=== PATIENT | female | born 1985 | race Caucasian/White ===

== ENCOUNTER → 2020-07-09 11:58 | Outpatient (BNVA) | payer OTHER, SELFPAY | PROVIDERS: PCP Internal Medicine; Visit Provider Advanced Practice Midwife ==

== ENCOUNTER 2020-07-24 08:49 | Outpatient (REF) | payer OTHER, SELFPAY ==
[2020-07-25 09:29] LABS: CT PCR NOT DETECTED (Not Detect.); NG PCR NOT DETECTED (Not Detect.)
== END 2020-07-24 08:50 | disposition home or self-care (01) ==
LOC: HO.LAB 08:49
PROVIDERS: PCP Internal Medicine; Visit Provider Advanced Practice Midwife
DX: Z01.419 Encounter for gynecological examination (general) (routine) without abnormal findings (principal); Z11.3 Encounter for screening for infections with a predominantly sexual mode of transmission; Z20.2 Contact with and (suspected) exposure to infections with a predominantly sexual mode of transmission
CPT/HCPCS: 87491; 87591

== ENCOUNTER → 2020-08-19 08:10 | Outpatient (BNVA) | payer OTHER, SELFPAY | PROVIDERS: PCP Internal Medicine; Visit Provider Advanced Practice Midwife ==

== ENCOUNTER 2020-11-15 07:20 | Outpatient (REF) | payer OTHER, SELFPAY ==
[2020-11-15 07:55] LABS: MANUAL DIFF FLAG NO
[2020-11-15 08:01] LABS: Basophils Absolute Auto 0.1 X10*3/uL (0.0-0.2); Basophils Percent Auto 1.1 % (0-2); Eosinophils Absolute Auto 0.2 X10*3/uL (0.0-0.4); Eosinophils Percent Auto 2.4 % (0-4); Hematocrit 38.3 % (37-47); Hemoglobin 12.9 g/dl (12.0-16.0); Imm Gran Abs Auto 0.01 X10*3/uL (0.00-0.03); Imm Gran Pct Auto 0.2 % (0.0-0.4); Lymphocytes Absolute Auto 1.8 X10*3/uL (1.2-4.9); Lymphocytes Percent Auto 27.8 % (20-40); Mean Corpuscular HGB Conc 33.7 g/dl (31.0-35.0); Mean Corpuscular Hemoglobin 28.4 pg (27.0-33.0); Mean Corpuscular Volume 84.2 fL (80-98); Monocytes Absolute Auto 0.4 X10*3/uL (0.1-1.2); Monocytes Percent Auto 5.4 % (2-11); Neutrophils Absolute Auto 4.2 X10*3/uL (2.0-8.3); Neutrophils Percent Auto 63.1 % (45-73); Platelet Count 244 X10*3/uL (160-400); Red Blood Count 4.55 X10*6/uL (4.20-5.50); Red Cell Distribution Width 12.4 % (11.0-16.0); White Blood Count 6.6 X10*3/uL (4.8-10.8)
[2020-11-15 08:16] LABS: Alanine Aminotransferase 11 U/L (0-31); Anion Gap 12 (12-20); Aspartate Amino Transferase 17 U/L (5-31); Blood Urea Nitrogen 11 mg/dL (9-16); Calcium 9.3 mg/dL (8.4-10.2); Carbon Dioxide 22 mmol/L (22-29); Chloride 109 mmol/L (96-108); Cholesterol 171 mg/dL; Estimated Glomerular Filt Rate > 60; Glucose Fasting 101 mg/dL (60-99); HDL Cholesterol 52 mg/dL; LDL Cholesterol Calculated 101 mg/dl; Potassium 4.2 mmol/L (3.3-5.1); Sodium 139 mmol/L (135-145); Triglycerides 93 mg/dL
[2020-11-15 08:39] LABS: TSH reflex Free T4 1.83 uIU/mL (0.32-4.0)
== END 2020-11-15 07:21 | disposition home or self-care (01) ==
LOC: HO.LAB 07:20
PROVIDERS: PCP Internal Medicine; Visit Provider Internal Medicine
DX: Z00.00 Encounter for general adult medical examination without abnormal findings (principal); J30.89 Other allergic rhinitis; R53.83 Other fatigue; I10 Essential (primary) hypertension; Z91.018 Allergy to other foods
CPT/HCPCS: 36415; 80048; 80061; 82306; 84443; 84450; 84460; 85025

== ENCOUNTER 2021-07-27 09:06 | Outpatient (REF) | payer OTHER, SELFPAY ==
[2021-07-28 06:40] LABS: CT PCR NOT DETECTED (Not Detect.); NG PCR NOT DETECTED (Not Detect.)
== END 2021-07-27 09:07 | disposition home or self-care (01) ==
LOC: HO.LAB 09:06
PROVIDERS: PCP Internal Medicine; Visit Provider Advanced Practice Midwife
DX: Z01.419 Encounter for gynecological examination (general) (routine) without abnormal findings (principal); Z20.2 Contact with and (suspected) exposure to infections with a predominantly sexual mode of transmission
CPT/HCPCS: 87491; 87591

== ENCOUNTER 2021-07-30 13:55 | Outpatient (REF) | payer OTHER, SELFPAY ==
[2021-07-30 16:22] LABS: Basophils Absolute Auto 0.1 X10*3/uL (0.0-0.2); Basophils Percent Auto 0.7 % (0-2); Red Cell Distribution Width 12.9 % (11.0-16.0); SCAN SMEAR FLAG 1
[2021-07-30 16:24] LABS: PLT CLUMP 1
[2021-07-30 16:28] LABS: Imm Gran Abs Auto 0.02 X10*3/uL (0.00-0.03); Imm Gran Pct Auto 0.2 % (0.0-0.4); MANUAL DIFF FLAG SCAN; Mean Corpuscular Volume 85.5 fL (80.0-98.0)
[2021-07-30 16:29] LABS: Eosinophils Absolute Auto 0.2 X10*3/uL (0.0-0.4); Eosinophils Percent Auto 2.3 % (0-4); Hematocrit 38.4 % (37.0-47.0); Hemoglobin 12.6 g/dl (12.0-16.0); Lymphocytes Absolute Auto 2.3 X10*3/uL (1.2-4.9); Lymphocytes Percent Auto 23.2 % (20-40); Mean Corpuscular HGB Conc 32.8 g/dl (31.0-35.0); Mean Corpuscular Hemoglobin 28.1 pg (27.0-33.0); Mean Platelet Volume 13.3 fL (9.4-12.3); Monocytes Absolute Auto 0.7 X10*3/uL (0.1-1.2); Monocytes Percent Auto 7.1 % (2-11); Neutrophils Absolute Auto 6.6 x10*3/uL (2.0-8.3); Neutrophils Percent Auto 66.5 % (45-73); Red Blood Count 4.49 X10*6/uL (4.20-5.50)
[2021-07-30 16:30] LABS: PLT ABN DIST 1
[2021-07-30 16:33] LABS: White Blood Count 9.9 X10*3/uL (4.8-10.8)
[2021-07-30 16:51] LABS: TSH reflex Free T4 2.01 uIU/mL (0.32-4.0); Vitamin D 25-OH Total 21.1 ng/mL (>30)
[2021-07-30 16:54] LABS: Platelet Count 240 X10*3/uL (160-400); SLIDE REVIEW VERIFIED
== END 2021-07-30 13:56 | disposition home or self-care (01) ==
LOC: HO.HMGCLDS 13:55
PROVIDERS: PCP Internal Medicine; Visit Provider Internal Medicine
DX: R00.2 Palpitations (principal)
CPT/HCPCS: 36415; 82306; 84443; 85025

== ENCOUNTER → 2021-09-10 14:27 | Outpatient (BNVA) | payer OTHER, SELFPAY | PROVIDERS: PCP Internal Medicine; Visit Provider Advanced Practice Midwife | DX: Z32.01 Encounter for pregnancy test, result positive (principal); Z63.6 Dependent relative needing care at home | CPT/HCPCS: 81025 ==

== ENCOUNTER → 2021-09-29 13:50 | Outpatient (BNVA) | payer OTHER, SELFPAY | PROVIDERS: PCP Internal Medicine; Visit Provider Advanced Practice Midwife | DX: O09.521 Supervision of elderly multigravida, first trimester (principal); Z3A.10 10 weeks gestation of pregnancy | CPT/HCPCS: 99212 ==

== ENCOUNTER 2021-10-02 13:18 | Outpatient (REF) | payer OTHER, SELFPAY ==
--- NOTE | ~2021-10-02 | US_ITS ---
EXAMINATION: OBSTETRICAL ULTRASOUND, FIRST TRIMESTER HISTORY: 35-year-old at 11.1 weeks of gestation NT screening COMPARISON: None TECHNIQUE: Real time transabdominal imaging with color and M-mode Doppler. FINDINGS: A single, live IUP CRL of 41.9 mm c/w 11.1wks is noted. Heart Rate: 160 beats per minute. Normal yolk sac seen. NT was 1.1.mm. NB Present The embryo appears sonographically wnl for this GA. Both maternal ovaries are seen and appear normal. GESTATIONAL AGE: 1. Established GA: 11.1 wks 2. GA from AUA: 11.1 wks ESTIMATED DATE OF DELIVERY: 1. Established GRACE: 04/22/2022 2. GRACE from AUA: 04/22/2022 US/US OB 1T nuc measure IMPRESSION: 1. A single live IUP 2. Size equals dates 3. NT of 1.1 mm MFM Consultation: I reviewed the ultrasound findings along with significance of NT measurement. The NT of less than 3mm is generally reassuring. However, the sensitivity for T21 detection is only 60%. I reviewed the availability of serum aneuploidy screening which includes cell-free DNA and placental protein based tests. I discussed the sensitivity, false-positive rate, and other limitations associated with each test. I also reviewed the availability of invasive diagnostic tests that are associated small but definite risk of miscarriage. We also reviewed the differences between screening tests and diagnostic tests. After our discussion, she opted for the First trimester screening that is based on cell-free DNA or non-invasive testing (NIPT). The result will be faxed to your office in approximately 7 days. A follow up at 18 weeks for survey has been scheduled. Thank you very much for this referral. Total time 20 minutes. The time spent was devoted to counseling the patient about the disease and diagnosis, coordinating care including reviewing her records, pertinent lab data and studies, as well as discussing diagnostic evaluation and workup, plan therapeutic interventions and future disposition of care. This includes any additional research needed to obtain further information in formulating the plan of care of this patient. This note was generated with a voice recognition program. Please excuse any errors which may have been overlooked during my review of this note. Sometimes these errors may affect the content or meaning of a given sentence.
== END 2021-10-02 13:19 | disposition home or self-care (01) ==
LOC: HO.US 13:18
PROVIDERS: Visit Provider Advanced Practice Midwife
DX: Z34.91 Encounter for supervision of normal pregnancy, unspecified, first trimester (principal); Z36.3 Encounter for antenatal screening for malformations; Z3A.11 11 weeks gestation of pregnancy
CPT/HCPCS: 76813

== ENCOUNTER 2021-10-03 07:09 | Outpatient (REF) | payer OTHER, MEDICAID, SELFPAY ==
[2021-10-03 09:35] LABS: Hematocrit 35.6 % (37.0-47.0); Mean Corpuscular HGB Conc 33.7 g/dl (31.0-35.0); Mean Corpuscular Hemoglobin 28.7 pg (27.0-33.0); Mean Corpuscular Volume 85.2 fL (80.0-98.0); Mean Platelet Volume 12.4 fL (9.4-12.3); Platelet Count 244 X10*3/uL (160-400); Red Blood Count 4.18 X10*6/uL (4.20-5.50); Red Cell Distribution Width 13.2 % (11.0-16.0); White Blood Count 7.9 X10*3/uL (4.8-10.8)
[2021-10-03 10:02] LABS: Glucose 1 Hour PP 50gm Dose 130 mg/dL (60-140)
[2021-10-03 10:20] LABS: Amphetamine Screen Urine Not Detected (Not Detect); Barbiturates, Urine Not Detected (Not Detect); Benzodiazepines Screen Urine Not Detected (Not Detect); Cannabinoid Screen Urine Not Detected (Not Detect); Cocaine Screen Urine Not Detected (Not Detect); Fentanyl, urine Not Detected (Not Detect); Opiate Screen Urine Not Detected (Not Detect); Phencyclidine Screen Urine Not Detected (Not Detect)
[2021-10-05 07:59] LABS: Syphilis Screen Nonreactive (Nonreactive)
[2021-10-05 10:03] LABS: HIV AB/AG Nonreactive (Nonreactive); HIV Num 1 0.04 S/CO (0.00-0.99); Hepatitis B Surface Antigen Negative (Negative); ~HepC Num1 0.08 S/CO (0.00-0.79); ~Hepatitis C Antibody Nonreactive (Nonreactive)
[2021-10-05 17:12] LABS: Rubella IgG Antibody 5.62 Index
== END 2021-10-03 07:10 | disposition home or self-care (01) ==
LOC: HO.LAB 07:09
PROVIDERS: PCP Internal Medicine; Visit Provider Advanced Practice Midwife
DX: Z32.01 Encounter for pregnancy test, result positive (principal)
CPT/HCPCS: 80307; 85027; 86762; 86780; 86787; 86803; 87086; 87340; 87389

== ENCOUNTER 2021-10-15 09:28 | Outpatient (REF) | payer OTHER, MEDICAID, SELFPAY ==
[2021-10-15 14:33] LABS: CT PCR NOT DETECTED (Not Detect.); NG PCR NOT DETECTED (Not Detect.)
[2021-10-16 09:20] LABS: BV Int Neg Control Negative (Negative); BV Int Pos Control Positive (Positive)
== END 2021-10-15 09:29 | disposition home or self-care (01) ==
LOC: HO.LAB 09:28
PROVIDERS: PCP Internal Medicine; Visit Provider Advanced Practice Midwife
DX: O09.521 Supervision of elderly multigravida, first trimester (principal); Z3A.13 13 weeks gestation of pregnancy
CPT/HCPCS: 81003; 87480; 87491; 87510; 87591; 87660; 99212

== ENCOUNTER → 2021-10-29 08:21 | Outpatient (BNVA) | payer OTHER, MEDICAID, SELFPAY | PROVIDERS: PCP Internal Medicine; Referring Provider Internal Medicine; Visit Provider Internal Medicine Cardiovascular Disease | DX: R00.2 Palpitations (principal) | CPT/HCPCS: 93005 ==

== ENCOUNTER → 2021-10-30 15:02 | Outpatient (REF) | payer OTHER, MEDICAID, SELFPAY ==
--- NOTE | 2021-10-30 15:05 | CA_ITS ---
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 The calculated ejection fraction is 63% by biplane method. - No obvious valvular pathology seen on this study. - The right ventricular systolic pressure is 37 mmHg. Mild pulmonary hypertension is present. - There is a trivial pericardial effusion. Findings Left Ventricle Normal left ventricular cavity size. There is normal left ventricular wall thickness. The left ventricular systolic function is normal. The calculated ejection fraction is 63% by biplane method. There is no evidence of regional wall motion abnormalities. Diastolic function is normal for age. Right Ventricle Normal right ventricular cavity size and systolic function. Atria Both atria are normal in size. Aortic Valve There is a normal trileaflet aortic valve. There is no aortic valve stenosis. There is no aortic valve regurgitation. Mitral Valve The mitral valve appears normal. There is trace mitral valve regurgitation. There is no mitral valve stenosis. Pulmonic Valve The pulmonic valve is likely normal. Tricuspid Valve Normal tricuspid valve structure. There is trace tricuspid valve regurgitation. The right ventricular systolic pressure is 37 mmHg. Mild pulmonary hypertension is present. Great Vessels The asc aorta is normal in size. Venous The inferior vena cava is normal in size and collapses greater than 50% with inspiration. Pericardium/Pleural There is a trivial pericardial effusion. Prior Study Comparison No prior study available for comparison. Recommendations, Care & Conclusions No obvious valvular pathology seen on this study. Measurements 2D Linear Measurements IVSd: 0.87 0.6-0.9/0.6-1.0 cm LVIDd: 4.65 3.9-5.3/4.2-5.9 cm LVIDd Index: 2.61 2.4-3.2/2.2-3.1 cm/m2 LVIDs: 2.83 2.0-3.6 cm LVPWd: 0.84 0.7-1.1 cm LA Diam: 3.70 2.7-3.8/3.0-4.0 cm LAIDs Index: 2.08 1.5-2.3 cm/m2 LV Mass: 162.98 67-162/88-224 g LV Mass Index: 91.56 43-95/49-115 g/m2 LVOT Diam: 1.80 3.0+(-)1.3 cm 2D Systolic Function EF 4C: 62.40 >55% EF 2C: 65.40 >55% EF BiP: 63.40 >55% Mitral Valve MV Pk E: 1.32 MV PK A: 0.94 MV Decel Time: 183.00 E/A: 1.40 E'Lateral: 11.30 E'Medial: 8.27 E/E' Med: 16.00 E/E' Lat: 11.70 PHT: 54.00 MVA PHT: 4.07 Decel Parke: 7.21 Aortic Valve AoV Pk Sean: 1.76 AoV Mn Sean: 1.14 AoV VTI: 0.35 AoV Pk Grad: 12.00 Aov Mn Grad: 6.00 BRYANNA Cont.VTI: 1.81 LVOT LVOT Pk Sean: 1.25 LVOT Mn Sean: 0.84 LVOT VTI: 0.25 LVOT Pk Grad: 6.00 LVOT Mn Grad: 3.00 LVOT Diam: 1.80 LVOT Area: 2.54 Diastolic Function MV Pk E: 1.32 MV Pk A: 0.94 E/A: 1.40 E'Medial: 8.27 E/E' Med: 16.00 E' Laterial: 11.30 E/E' Lat: 11.70 Right Ventricle TAPSE (mm): 25.60 TVS' Sean: 13.30 Tricuspid Valve TR Pk Sean: 2.93 TR Pk Grad: 34.00 RA Press: 3.00 RVSP: 37.00 Great Vessels Aorta Sinus of Valsalva: 2.22 2.0-3.[address] Ridge: 1.93 1.7-3.4 cm Ao Asc: 2.60 2.1-3.4 cm Updated in Other Vendor System with Status of Final Poli Vitale MD electronically signed on 11/03/2021 4:17:07 PM with status of Final
== END ==
LOC: HO.CARD 15:02
PROVIDERS: PCP Internal Medicine; Visit Provider Internal Medicine Cardiovascular Disease
DX: R00.2 Palpitations (principal)
CPT/HCPCS: 93306

== ENCOUNTER → 2021-11-10 07:24 | Outpatient (REF) | payer OTHER, MEDICAID, SELFPAY ==
--- NOTE | 2021-11-10 07:28 | HM_ITS ---
* Total monitoring time 2 days and 23 hours. * Underlying rhythm is sinus. Average rate 101/Min. Range 81 to 153/Min. * About 55% the time, rate greater than 100/Min-sinus tachycardia. * No atrial fibrillation or flutter or AV blocks or pauses. * Very rare supraventricular ectopy with minimal burden. * Rare ventricular ectopy with minimal burden. * No patient events. MTDD
== END ==
LOC: HO.CARD 07:24
PROVIDERS: PCP Internal Medicine; Visit Provider Internal Medicine Cardiovascular Disease
DX: R00.2 Palpitations (principal)
CPT/HCPCS: 93242

== ENCOUNTER → 2021-11-12 14:31 | Outpatient (BNVA) | payer OTHER, MEDICAID, SELFPAY | PROVIDERS: PCP Internal Medicine; Visit Provider Advanced Practice Midwife | DX: Z34.92 Encounter for supervision of normal pregnancy, unspecified, second trimester (principal); Z3A.17 17 weeks gestation of pregnancy | CPT/HCPCS: 81003; 99212 ==

== ENCOUNTER → 2021-12-10 14:48 | Outpatient (BNVA) | payer OTHER, MEDICAID, SELFPAY | PROVIDERS: PCP Internal Medicine; Visit Provider Advanced Practice Midwife | DX: Z34.82 Encounter for supervision of other normal pregnancy, second trimester (principal); Z3A.21 21 weeks gestation of pregnancy | CPT/HCPCS: 99212 ==

== ENCOUNTER → 2021-12-22 14:51 | Outpatient (REF) | payer OTHER, MEDICAID, SELFPAY ==
--- NOTE | 2021-12-22 14:53 | CA_ITS ---
Transthoracic Echocardiogram Patient (Last, First, Middle): Yamini Martins, Gender: Female Date of : 1985 Age: 35 Procedure Date: 12/22/2021 Procedure Type: Transthoracic Echocardiogram Location: OP Height: 157.48 cm Weight: 79.38 kg BSA: 1.81 m2 Heart Rate: bpm BP: 118 / 72 mmHg Checkerer Hand: PORTIA Referring MD: Nikhil Robles MD Symptoms: I27.20 - Pulmonary hypertension, unspecified Study Quality: Adequate ECG Rhythm: Sinus Conclusions: - Mild pulmonary hypertension is present. Findings Right Ventricle Normal right ventricular cavity size and systolic function. Tricuspid Valve Normal tricuspid valve structure. There is trace tricuspid valve regurgitation. The right ventricular systolic pressure is 37 mmHg. Mild pulmonary hypertension is present. Venous The inferior vena cava is normal in size and collapses greater than 50% with inspiration. Prior Study Comparison No significant change compared to prior study dated: 10/30/2021. Measurements Tricuspid Valve TR Pk Sean: 2.93 TR Pk Grad: 34.00 RA Press: 3.00 RVSP: 37.00 Updated in Other Vendor System with Status of Final Poli Vitale MD electronically signed on 12/23/2021 10:45:10 AM with status of Final
== END ==
LOC: HO.CARD 14:51
PROVIDERS: PCP Internal Medicine; Visit Provider Internal Medicine Cardiovascular Disease
DX: I27.20 Pulmonary hypertension, unspecified (principal)
CPT/HCPCS: 93308

== ENCOUNTER → 2022-01-05 15:38 | Outpatient (BNVA) | payer OTHER, MEDICAID, SELFPAY | PROVIDERS: PCP Internal Medicine; Visit Provider Advanced Practice Midwife | DX: O09.522 Supervision of elderly multigravida, second trimester (principal); Z3A.24 24 weeks gestation of pregnancy | CPT/HCPCS: 81003; 99212 ==

== ENCOUNTER → 2022-02-03 13:46 | Outpatient (BNVA) | payer OTHER, MEDICAID, SELFPAY | PROVIDERS: PCP Internal Medicine; Visit Provider Advanced Practice Midwife | DX: O16.3 Unspecified maternal hypertension, third trimester (principal); O26.893 Other specified pregnancy related conditions, third trimester; R00.2 Palpitations; Z3A.28 28 weeks gestation of pregnancy | CPT/HCPCS: 99212 ==

== ENCOUNTER 2022-11-10 08:43 | Outpatient (AMB) | payer OTHER, MEDICAID, SELFPAY ==
[2022-11-10 08:46] VITALS: BP 126/76; PULSE 96; BMI 31.4
--- NOTE | 2022-11-10 08:46 | MHC.OFFVIS ---
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 She had her child 7 months ago. She had some issues with blood pressure after delivery. Otherwise she has been doing well. Blood pressures been well optimized. She has no cardiac symptoms. Still has occasional palpitations. However does not notice her heart racing. No lightheadedness, syncope. No orthopnea, PND. PFSH Medical History Environmental and seasonal allergies Food allergy Intermittent palpitations Migraine Mild intermittent asthma Seasonal allergies Vitamin D deficiency Family History Mother Heart murmur Father Hx of diabetes mellitus Maternal Grandmother Hx of diabetes mellitus Social History Housing: House Alcohol intake: never Patient Tobacco Use Status: Never used Tobacco e-Cigarette/Vaping Use: Never Used Second Hand Smoke Exposure: No service: No Current occupational status: employed Gender identity: Female Cognitive needs: No Hearing needs: No Vision needs: Yes Female Reproductive History Menstrual Age of Menarche: 11 Review of Systems Const Denies chills, Denies fatigue, Denies fever(s), Denies frequent falls, Denies weakness, Denies weight gain and Denies weight loss ENT Denies dizziness Card Denies chest pain, Denies leg edema, Denies lightheadedness, Denies palpitations, Denies dyspnea, Denies dyspnea on exertion, Denies orthopnea and Denies other (loss of consciousness) Resp Denies cough, Denies dyspnea and Denies dyspnea on exertion GI Denies hematochezia and Denies change in stool character Musc Denies abnormal gait, Denies muscle weakness, Denies numbness, Denies radiating pain into limb and Denies tingling Neuro Denies Abnormal speech present, Denies abnormal gait, Denies dizziness, Denies frequent falls, Denies numbness, Denies tingling and Denies weakness Endo Denies fatigue and Denies palpitations Physical Exam Vital Signs: Last Vital Signs Pulse 96 11/10/22 08:46 BP 126/76 11/10/22 08:46 BMI result Body Mass Index 31.4 Const General: cooperative, comfortable, no acute distress, well developed, alert, awake, Physically active and well groomed Nutritional Appearance: average body habitus Orientation/consciousness: patient oriented x3 Limitations: no limitations Neck Neck: Yes trachea midline, Yes supple and Yes no JVD Chest Chest palpation & inspection: normal inspection of the chest Resp Effort & Inspection: normal respiratory effort Auscultation: clear to auscultation bilaterally Cardio Jugular venous distension: no JVD Palpation: normal PMI Rate: regular rate Rhythm: regular rhythm Heart sounds: S1 normal heart sound present, S2 normal heart sound present, no click, no gallops, no murmurs and no rubs GI Inspection: Yes other (Gravid) Auscultation: normal bowel sounds Skin General skin exam: no rashes or lesions noted Neuro General: patient oriented x3 and no focal motor deficits Speech: No Abnormal speech present Extrem General: Yes no clubbing, cyanosis or edema Assessment & Plan Assessment & Plan (1) Mild pulmonary arterial systolic hypertension: Code(s): I27.21 - Secondary pulmonary arterial hypertension Plan: Patient noted to have upper limits of normal RV systolic pressure. Does not qualify for diagnosis of pulmonary hypertension. Could be related to and increased volume. Will repeat limited echocardiogram near future. If RV systolic pressures are within normal limits no further workup is indicated or follow-up is indicated. Advised to participate in stress mitigation strategies and avoid stimulants. Advised to have adequate hydration. Advised to maintain activity level and regularly exercise. Will follow up in the clinic if need be. Thank you for allowing me to partake in her care Orders: Orders CA echo limited Today I27.21 - Secondary pulmonary arterial hypertension Coding Level of Care Code Est Pt Level 3 (50331) Diagnoses Mild pulmonary arterial systolic hypertension I27.21
== END 2022-11-10 09:05 | disposition home or self-care (01) ==
PROVIDERS: PCP Internal Medicine; Referring Provider Internal Medicine; Visit Provider Internal Medicine Cardiovascular Disease
DX: I27.21 Secondary pulmonary arterial hypertension (principal)
CPT/HCPCS: 93010; 99213

== ENCOUNTER → 2022-11-10 08:43 | Outpatient (BNVA) | payer OTHER, MEDICAID, SELFPAY | PROVIDERS: PCP Internal Medicine; Referring Provider Internal Medicine; Visit Provider Internal Medicine Cardiovascular Disease | DX: I27.21 Secondary pulmonary arterial hypertension (principal) | CPT/HCPCS: 93005 ==

== ENCOUNTER 2022-11-10 13:26 | Outpatient (AMB) | payer OTHER, MEDICAID, SELFPAY ==
--- NOTE | 2022-11-10 13:46 | A.OFFPC_ITS ---
Vital Signs 11/10/22 13:52 Height 5 ft 2 in Weight 173 lb BMI 31.6 BP 120/82 Blood Pressure Location Lt brachial Position Sitting Pulse 89 Pulse Source Pulse Oximeter Pulse Oximetry (%) 100 Oxygen Delivery Method Room Air Intake Visit Reasons: PE Intake Note: Pt is here today for her PE Is last menstrual period known: Yes Last menstrual period: 11/08/22 Allergies advil Allergy (Unknown, Uncoded 11/10/22 14:09) swelling Strawberries, Apples Allergy (Unknown, Uncoded 11/10/22 14:09) itching Medication List - Last Reconciled 11/10/22 by Joanna Montoya MD albuterol sulfate 90 mcg/actuation 2 puffs inhalation Q6H PRN multivitamin 1 tab PO DAILY norgestimate-ethinyl estradiol 0.18/0.215/0.25 mg-35 mcg (28) (Tri-Sprintec (28)) 1 tab PO DAILY ubrogepant (Ubrelvy) 0 mg PO Tobacco use date assessed: 11/10/22 Dental Screening Dental Screen Date: 11/10/22 Did you have a dental visit in the last 12 months?: Yes Did you have a dental problem in the last 6 months where you did not have access to dental care?: No Was dental information given to patient?: Patient has dentist HPI PE HPI Details 36-year-old lady here today for physical exam. She has migraine headaches , currently followed at [facility] neurology , controlled on Ubrelvy. She goes to [facility] OBG[facility], up-to-date with her cervical cancer screening . She has mild intermittent asthma and season allergies currently stable controlled on present treatment, rarely needing to use her inhalers. She has had COVID vaccinations the past but does not want to get a booster, reminded to get her flu shot, which she gets at work and is up-to-date with her Tdap and Pneumovax 23. [facility] Medical History (Updated 11/10/22 @ 16:14 by Joanna Montoya MD) Environmental and seasonal allergies Food allergy Intermittent palpitations Migraine Mild intermittent asthma Seasonal allergies Vitamin D deficiency Family History Mother Heart murmur Father Hx of diabetes mellitus Maternal Grandmother Hx of diabetes mellitus Social History Housing: House Alcohol intake: never Patient Tobacco Use Status: Never used Tobacco e-Cigarette/Vaping Use: Never Used Second Hand Smoke Exposure: No service: No Current occupational status: employed Gender identity: Female Cognitive needs: No Hearing needs: No Vision needs: Yes Female Reproductive History Menstrual Age of Menarche: 11 Date of last menstrual period: 11/08/22 Total pregnancies: 3 Full term: 3 Questionnaire PHQ-9 Over the last 2 weeks, how often have you been bothered by any of the following problems? 1. Little interest or pleasure in doing things: not at all 2. Feeling down, depressed, or hopeless: not at all 3. Trouble falling or staying asleep, or sleeping too much: not at all 4. Feeling tired or having little energy: not at all 5. Poor appetite or overeating: not at all 6. Feeling bad about yourself - or that you are a failure or have let yourself or your family down: not at all 7. Trouble concentrating on things, such as reading the newspaper or watching television: not at all 8. Moving or speaking so slowly that other people could have noticed. Or the opposite - being so fidgety or restless that you have been moving around a lot more than usual: not at all 9. Thoughts that you would be better off or of hurting yourself in some way: not at all Total score: 0 Depression Screening Interpretation: Negative 43082 - PHQ-9 Billing: Yes Source: Developed by Drs. Rodrigo Quijano, Re Goff, Michael Malone and colleagues, with an educational yanique from [employer]. Thrive Questionnaire Date Thrive assessed: 11/10/22 I am a: Patient What is your living situation today?: I have a steady place to live Within the past 12 months, did the food you bought not last and you didn't have the money to get more?: Never true Within the past 12 months, did you worry whether your food would run out before you got money to buy more?: Never true Do you have trouble paying for medicines?: No Do you have trouble getting transportation to medical appointments?: No Do you have trouble paying your heating and electricity bill?: No Do you have trouble taking care of your child, family member or friend?: No Do you have trouble with day-to-day activities such as bathing, preparing meals, shopping, managing finances, etc.?: No Are you currently unemployed and looking for a job?: No Are you interested in more education?: No AUDIT C Alcohol Use Questionnaire (AUDIT-C) 1. How often do you have a drink containing alcohol?: Never Total Score: 0 SERGIO-7 AMB Questionnaire SERGIO-7 Date SERGIO - 7 assessed: 11/10/22 Feeling nervous, anxious, or on edge: 0 = Not at all Not being able to stop or control worryin = Not at all Worrying too much about different things: 0 = Not at all Trouble relaxin = Not at all Being so restless that it is hard to sit still: 0 = Not at all Becoming easily annoyed or irritable: 0 = Not at all Feeling afraid as if something awful might happen: 0 = Not at all Total SERGIO-7 score (0-4 normal; 5-9 mild; 10-14 moderate; 15-21 severe): 0 Source: Developed by Drs. Rodrigo Quijano, Re Goff, Michael Malone and colleagues, with an educational yanique from [employer]. SERGIO-7 Assessment Billing SERGIO-7 Assessment Tool: SERGIO-7 Assessment 64786 Review of Systems Const Denies chills, Denies fatigue, Denies fever(s), Denies frequent falls and Denies weakness Eyes Reports no additional complaints ENT Reports no additional complaints and Denies dizziness Card Denies chest pain, Denies leg edema, Denies lightheadedness, Denies palpitations, Denies dyspnea, Denies dyspnea on exertion and Denies orthopnea Resp Denies cough, Denies dyspnea and Denies dyspnea on exertion GI Denies hematochezia and Denies change in stool character Reports no additional complaints Musc Denies abnormal gait, Denies muscle weakness, Denies numbness, Denies radiating pain into limb and Denies tingling Skin/Breast Denies breast swelling, Denies breast pain, Denies breast mass, Denies lesions and Denies rash Neuro Denies abnormal gait, Denies dizziness, Denies frequent falls, Denies numbness, Denies tingling and Denies weakness Psych Reports no additional complaints Endo Denies fatigue and Denies palpitations Marco A/Lymph Reports no additional complaints Aller/Immun Reports no additional complaints Physical exam (Primary Care) Vital Signs: Last Vital Signs Pulse 89 11/10/22 13:52 BP 120/82 11/10/22 13:52 Pulse Ox 100 11/10/22 13:52 Oxygen Delivery Method Room Air 11/10/22 13:52 BMI result Body Mass Index 31.6 Tobacco/Smoking Status: Tobacco use Status Tobacco use date assessed 11/10/22 11/10/22 13:48 Patient Tobacco Use Status Never used Tobacco 11/10/22 13:48 e-Cigarette/Vaping Use Never Used 11/10/22 13:48 PHQ-9: PHQ-9 Score PHQ-9: Total score 0 11/10/22 13:51 Depression Screening Interpretation: Negative Thrive Assessment: Date of Thrive Assessment Date Thrive assessed 11/10/22 11/10/22 13:57 Const General: cooperative, comfortable and no acute distress Orientation/consciousness: patient oriented x3 Limitations: no limitations HENMT Ears: external ears normal General nose exam: Normal external nose present and No nasal discharge present Face and sinus: Yes sinuses nontender and Yes face symmetric Mouth: Normal oral and palatal mucosa present, oropharynx normal and moist mucous membranes Throat: Yes posterior oropharynx normal Eyes General: appearance normal, both eyes and all related structures Conjunctivae: conjunctivae normal Pupils: Equal, round and reactive pupils present EOM: EOMs intact bilaterally Neck Other: Nonpalpable thyroid Neck: Yes full ROM, Yes no lymphadenopathy and Yes supple Chest Chest palpation & inspection: normal inspection of the chest and normal palpation of entire chest wall Breast/axilla inspection: normal inspection of the breasts Breast/axilla palpation: normal palpation of the breasts Resp Effort & Inspection: normal respiratory effort and able to speak in complete sentences Auscultation: clear to auscultation bilaterally Cardio Rate: regular rate Rhythm: regular rhythm Heart sounds: S1 normal heart sound present and S2 normal heart sound present GI Inspection: Yes normal to inspection Palpation (GI): Soft to palpation, nontender and no masses Auscultation: normal bowel sounds Other: Goes to [facility] OBGYN for her routine Pap and pelvic exam General: Yes no CVA tenderness Back/Spine/Pelvis Back: no CVA tenderness and No back tenderness Skin General skin exam: no rashes or lesions noted Neuro General: patient oriented x3, gait normal, tone normal, moves all extremities, Normal light touch and pain sensation and no focal motor deficits Cranial nerves: Yes Equal, round and reactive pupils present Cognition (Neuro): normal cognition Gait exam (Neuro): Normal gait present Motor exam (neuro): 5/5 motor strength present throughout Extrem Other: No edema cyanosis or clubbing seen, no gross bone deformity or joint swelling Psych Appearance: grossly normal Mental Status: mental status grossly normal Speech and movement: Normal speech and movement present Affect: normal affect Attitude: cooperative Thought process: Normal thought process present Thought content: Normal thought content present Assessment and Plan Assessment & Plan (1) Vitamin D deficiency: Code(s): E55.9 - Vitamin D deficiency, unspecified Plan: Check vitamin-D level, advised to start taking [id number]-dgy-pdbsydg vitamin D3 at 2000 units daily (2) Mild intermittent asthma: Code(s): J45.20 - Mild intermittent asthma, uncomplicated Plan: Stable and controlled present treatment, rarely needing to use her albuterol inhaler (3) Annual visit for general adult medical examination with abnormal findings: Code(s): Z00.01 - Encounter for general adult medical examination with abnormal findings Plan: Will check appropriate labs. Continue with regular dental visit every 6 months and regular eye exams, at least every 2 years. Take adequate calcium in diet and vitamin-D 3 at 2000 IU per cap once a day, in addition to weight-bearing exercises to help maintain good muscle tone and weight control. Instructed to do self-breast exam, and recommended to get yearly mammogram, starting at age 40. Declines getting the COVID booster, up-to-date with her flu shot, and Tdap as well as Pneumovax 23 vaccine. Goes to [facility] OBG[facility] for her routine Pap and pelvic exam and for monitoring or contraceptive use (4) Migraine: Comment: without aura Code(s): G43.909 - Migraine, unspecified, not intractable, without status migrainosus Plan: Followed at [facility] neurology, migraine headaches currently controlled on Ubrelvy (5) Hyperhidrosis: Code(s): R61 - Generalized hyperhidrosis Orders: Orders Alanine Aminotransferase Today E55.9 - Vitamin D deficiency, unspecified, J30.89 - Other allergic rhinitis, J45.20 - Mild intermittent asthma, uncomplicated, Z00.01 - Encounter for general adult medical examination with abnormal findings Aspartate Amino Transferase Today E55.9 - Vitamin D deficiency, unspecified, J30.89 - Other allergic rhinitis, J45.20 - Mild intermittent asthma, uncomplicated, Z00.01 - Encounter for general adult medical examination with abnormal findings Basic Metabolic Panel Fasting Today E55.9 - Vitamin D deficiency, unspecified, J30.89 - Other allergic rhinitis, J45.20 - Mild intermittent asthma, uncomplicated, Z00.01 - Encounter for general adult medical examination with abnormal findings Lipid Panel Today E55.9 - Vitamin D deficiency, unspecified, J30.89 - Other allergic rhinitis, J45.20 - Mild intermittent asthma, uncomplicated, Z00.01 - Encounter for general adult medical examination with abnormal findings Vitamin D 25-OH Total Today E55.9 - Vitamin D deficiency, unspecified, J30.89 - Other allergic rhinitis, J45.20 - Mild intermittent asthma, uncomplicated, Z00.01 - Encounter for general adult medical examination with abnormal findings Hemoglobin and Hematocrit Today E55.9 - Vitamin D deficiency, unspecified, J30.89 - Other allergic rhinitis, J45.20 - Mild intermittent asthma, uncomplicated, Z00.01 - Encounter for general adult medical examination with abnormal findings Medications: New Drysol Dab-O-Matic 20% (aluminum chloride) 1 appl topical 2XW PRN 35 mL 0RF hyperhidrosis NS Coding Level of Care Code Est Pt Prev Care 18-39y([id number]) Diagnoses Vitamin D deficiency E55.9 Mild intermittent asthma J45.20 Annual visit for general adult medical examination with abnormal findings Z00.01 Migraine G43.909 Hyperhidrosis R61 Additional Codes SERGIO-7 Assessment Billing - SERGIO-7 Assessment Tool: SERGIO-7 Assessment 28801 ([id number])
[2022-11-10 13:52] VITALS: BP 120/82; PULSE 89; O2SAT 100; BMI 31.6
== END 2022-11-10 14:39 | disposition home or self-care (01) ==
PROVIDERS: PCP Internal Medicine; Visit Provider Internal Medicine
DX: E55.9 Vitamin D deficiency, unspecified (principal); J45.20 Mild intermittent asthma, uncomplicated; Z00.01 Encounter for general adult medical examination with abnormal findings; G43.909 Migraine, unspecified, not intractable, without status migrainosus; R61 Generalized hyperhidrosis
CPT/HCPCS: 99395

== ENCOUNTER 2022-11-20 07:43 | Outpatient (REF) | payer OTHER, MEDICAID, SELFPAY ==
[2022-11-20 08:45] LABS: Hemoglobin 13.4 g/dl (12.0-16.0)
[2022-11-20 09:18] LABS: Alanine Aminotransferase 13 U/L (0-31); Anion Gap 13 (12-20); Aspartate Amino Transferase 17 U/L (5-31); Blood Urea Nitrogen 9 mg/dL (9-16); Calcium 9.5 mg/dL (8.4-10.2); Carbon Dioxide 26 mmol/L (22-29); Chloride 104 mmol/L (96-108); Cholesterol 181 mg/dL (<200); Estimated Glomerular Filt Rate > 60; Glucose Fasting 105 mg/dL (60-99); HDL Cholesterol 60 mg/dL (>40); LDL Cholesterol Calculated 93 mg/dL (<100); Potassium 4.2 mmol/L (3.3-5.1); Sodium 139 mmol/L (135-145); Triglycerides 142 mg/dL (<150)
[2022-11-20 09:49] LABS: Vitamin D 25-OH Total 32.1 ng/mL (>30)
== END 2022-11-20 07:44 | disposition home or self-care (01) ==
LOC: HO.LAB 07:43
PROVIDERS: PCP Internal Medicine; Visit Provider Internal Medicine
DX: Z00.01 Encounter for general adult medical examination with abnormal findings (principal); E55.9 Vitamin D deficiency, unspecified; J45.20 Mild intermittent asthma, uncomplicated; J30.89 Other allergic rhinitis
CPT/HCPCS: 36415; 80048; 80061; 82306; 84450; 84460; 85014; 85018

== ENCOUNTER → 2022-12-07 15:49 | Outpatient (REF) | payer OTHER, MEDICAID, SELFPAY ==
--- NOTE | 2022-12-07 15:52 | CA_ITS ---
Transthoracic Echocardiogram Patient (Last, First, Middle): Yamini Martins, Gender: Female Date of : 1985 Age: 36 Procedure Date: 12/07/2022 Procedure Type: Transthoracic Echocardiogram Location: OP Height: 157.48 cm Weight: 76.2 kg BSA: 1.77 m2 Heart Rate: bpm BP: 118 / 82 mmHg Banking Services Clerk: PORTIA Referring MD: Nikhil Robles MD Symptoms: I27.21 - Secondary pulmonary arterial hypertension Study Quality: Adequate Conclusions: - Normal RV systolic pressure Findings Left Ventricle Normal left ventricular size, thickness, and systolic function. The visually estimated ejection fraction is between 60-65%. Spectral Doppler is indicative of a normal filling pattern. Tricuspid Valve The right ventricular systolic pressure is normal. The right ventricular systolic pressure is 28 mmHg. Normal right atrial pressure. There is no evidence of pulmonary hypertension. Prior Study Comparison Changes noted compared to prior study dated: 12/22/2021. RV systolic pressure are within normal limits Measurements Mitral Valve MV Pk E: 1.19 MV PK A: 1.07 MV Decel Time: 257.00 E/A: 1.10 E'Lateral: 10.40 E'Medial: 9.36 E/E' Med: 12.70 E/E' Lat: 11.40 PHT: 75.00 MVA PHT: 2.93 Decel Beauregard: 4.64 Diastolic Function MV Pk E: 1.19 MV Pk A: 1.07 E/A: 1.10 E'Medial: 9.36 E/E' Med: 12.70 E' Laterial: 10.40 E/E' Lat: 11.40 Right Ventricle TAPSE (mm): 26.90 TVS' Sean: 10.40 Tricuspid Valve TR Pk Sean: 2.52 TR Pk Grad: 25.00 RA Press: 3.00 RVSP: 28.00 Updated in Other Vendor System with Status of Final Nikhil Robles MD electronically signed on 12/08/2022 11:00:22 AM with status of Final
== END ==
LOC: HO.CARD 15:49
PROVIDERS: PCP Internal Medicine; Visit Provider Internal Medicine Cardiovascular Disease
DX: I27.21 Secondary pulmonary arterial hypertension (principal)
CPT/HCPCS: 93308

== ENCOUNTER → 2022-12-07 15:52 | Outpatient (BNV) | payer OTHER, MEDICAID, SELFPAY | PROVIDERS: PCP Internal Medicine; Visit Provider Internal Medicine Cardiovascular Disease | DX: I27.21 Secondary pulmonary arterial hypertension (principal) | CPT/HCPCS: 93308 ==

== ENCOUNTER 2023-02-18 10:48 | Outpatient (AMB) | payer OTHER, MEDICAID, SELFPAY ==
--- NOTE | 2023-02-18 11:39 | AM.OFFWIN_ITS ---
Intake Vital Signs 02/18/23 11:49 Height 5 ft 2 in Weight 78.018 kg BMI 31.5 BP 130/80 Blood Pressure Location Rt brachial Position Sitting Pulse 82 Pulse Source Pulse Oximeter Temp 97.7 F Temp Source Temporal Artery Scan Pulse Oximetry (%) 99 Oxygen Delivery Method Room Air Intake Visit Reasons: EST/sore throat and body aches([phone]) Intake Note: pt is here today for sore throat and body aches started last night Patient Tobacco Use Status: Never used Tobacco Allergies advil Allergy (Unknown, Uncoded 11/10/22 14:09) swelling Strawberries, Apples Allergy (Unknown, Uncoded 11/10/22 14:09) itching Do you need a note to return to daycare/school/sports/work: Yes HPI HPI Comments History of Present Illness Details [id number] 37-year-old female presents with fatigue , malaise, myalgias, sore throat all which started yesterday, reports the symptoms came on together at once. Child that was sick with an ear infection. Denies chest pain, shortness of breath, cough, ear pain, headache, vision changes, dizziness, weakness, drooling, changes in voice, difficulty swallowing Physical exam benign Likely viral illness will obtain flu, COVID, RSV. Unlikely epiglottitis, threat to airway, retropharyngeal or peritonsillar abscess. Low suspicion for metabolic derangements. No signs of otitis media, otitis externa mastoiditis. Plan viral testing. Supportive measures. Educated patient on diagnosis and treatment plan, answered all question, patient verbalizes understanding. At this time patient will be discharged home, advised to return with new or worsening symptoms. Educated on worrisome signs and symptoms and when to return. At this time I feel comfortable discharge home. [facility] Medical History Vitamin D deficiency Intermittent palpitations Mild intermittent asthma Food allergy Environmental and seasonal allergies Migraine Seasonal allergies Family History Mother Heart murmur Father Hx of diabetes mellitus Maternal Grandmother Hx of diabetes mellitus Social History Housing: House Alcohol intake: never Patient Tobacco Use Status: Never used Tobacco e-Cigarette/Vaping Use: Never Used Second Hand Smoke Exposure: No service: No Current occupational status: employed Gender identity: Female Cognitive needs: No Hearing needs: No Vision needs: Yes Female Reproductive History Menstrual Age of Menarche: 11 Review of Systems Const Details: Constitutional : No Weight loss, No Fever, No Chills, + Fatigue, + Malaise ENT/Mouth : + sore throat, No Rhinorrhea Eyes: No Eye Pain, No Swelling, No Redness Cardiovascular : No Chest Pain, No SOB, No Dyspnea on Exertion, No Orthopnea, No Edema, No Palpitations Respiratory : No Cough, No Sputum, No Wheezing Gastrointestinal : No Nausea, No Vomiting, No Diarrhea, No Constipation, No abdominal Pain, No Hematochezia, No Melena Genitourinary : No Dysuria, No Urinary Frequency, No Hematuria, Musculoskeletal : No joint pain, + Myalgias, No Joint Swelling Skin : No Skin Lesions, No rash Neuro : No Weakness, No Numbness, No Dizziness, No Headache Psych : No Anxiety/Panic, No Depression All other systems reviewed and are negative All systems reviewed & are unremarkable except as noted in HPI and below Physical Exam Vital Signs: Last Vital Signs Temp 97.7 F 02/18/23 11:49 Pulse 82 02/18/23 11:49 BP 130/80 02/18/23 11:49 Pulse Ox 99 02/18/23 11:49 Oxygen Delivery Method Room Air 02/18/23 11:49 BMI result Body Mass Index 31.5 vss Appearance: Alert.? Oriented X3.? No acute distress.? Head: Normocephalic, atraumatic, no step-offs or deformities Eyes: Pupils equal, round and reactive to light.? Throat: Normal pharynx/oropharynx no edema, erythema. No abscess, exudate. Uvula midline. Speaking in full sentences controlling secretions well. Normal tympanic membranes, ear canals bilaterally no mastoid tenderness Neck: Normal inspection.? Neck supple.? CVS: Normal heart rate and rhythm.? Pulses normal.? Respiratory: No respiratory distress.? Breath sounds normal.? Abdomen: Soft and nontender.? Skin: Skin warm and dry.? Normal skin color.? Normal skin turgor.? Extremities: No lower extremity edema.? No calf ttp. 5/5 strength to bilateral upper and lower extremities Neuro: Oriented X 3.? No motor deficit.? No sensory deficit. CN 2-12 intact Assessment & Plan Assessment & Plan (1) Viral illness: Code(s): B34.9 - Viral infection, unspecified (2) Sore throat: Code(s): J02.9 - Acute pharyngitis, unspecified Plan Take your medications as prescribed. If you were prescribed antibiotics today, it is important that you take your medication to their entirety, do not skip any doses, do not finish them early. Follow-up with your primary care provider this week. Return to the emergency department with new or worsening symptoms. Such as fevers, chills, chest pain, shortness of breath, nausea, vomiting, dizziness, headache, vision changes, lethargy In case of emergency call 911 Orders: Orders SARS-CoV2/FLU/RSV Today B34.9 - Viral infection, unspecified Medications: New Magic Mouthwash Diphen/Lido/Antacid 1:1:1 Lidocaine Viscous 2 % 80mL; diphenhydramine 12.5 mg/5 mL 80mL; aluminum-mag hydrox-simeth [id number]/5mL 80mL Swish and spit do not swallow 5 mL PO TID 240 mL 0RF Coding Level of Care Code Est Pt Level 3 (52138) Diagnoses Viral illness B34.9 Sore throat J02.9
[2023-02-18 11:49] VITALS: BP 130/80; PULSE 82; TEMP 36.5; O2SAT 99; BMI 31.5
== END 2023-02-18 12:57 | disposition home or self-care (01) ==
PROVIDERS: PCP Internal Medicine; Visit Provider Physician Assistant
DX: B34.9 Viral infection, unspecified (principal); J02.9 Acute pharyngitis, unspecified
CPT/HCPCS: 87880; 99213

== ENCOUNTER 2023-02-18 12:02 | Outpatient (REF) | payer OTHER, MEDICAID, SELFPAY ==
[2023-02-18 15:35] LABS: Influenza A PCR NEGATIVE (Negative); Influenza B PCR NEGATIVE (Negative); Resp Syncy Virus RNA Qual PCR NEGATIVE (Negative); SARS COV2 PCR INHOUSE NEGATIVE (Negative)
== END 2023-02-18 12:03 | disposition home or self-care (01) ==
LOC: HO.LAB 12:02
PROVIDERS: Visit Provider Physician Assistant
DX: Z11.52 Encounter for screening for COVID-19 (principal); Z20.822 Contact with and (suspected) exposure to COVID-19; B34.9 Viral infection, unspecified
CPT/HCPCS: 0241U

== ENCOUNTER 2023-11-28 07:53 | Outpatient (AMB) | payer OTHER, MEDICAID, SELFPAY ==
[2023-11-28 08:20] VITALS: BP 132/92; PULSE 89; O2SAT 95; BMI 32.2
--- NOTE | 2023-11-28 08:20 | MHC.PC.OV ---
Vital Signs 11/28/23 08:20 Height 5 ft 2 in Weight 176 lb BMI 32.2 BP 132/92 H Blood Pressure Location Rt brachial Position Sitting Pulse 89 Pulse Source Pulse Oximeter Pulse Oximetry (%) 95 Oxygen Delivery Method Room Air Intake Visit Reasons: PE Intake Note: Pt is here today for her PE: Last papsmear 1.5 yr ago Allergies advil Allergy (Unknown, Uncoded 11/28/23 08:24) swelling Strawberries, Apples Allergy (Unknown, Uncoded 11/28/23 08:24) itching Medication List - Last Reconciled 11/28/23 by Joanna Montoya MD albuterol sulfate 90 mcg/actuation (Ventolin HFA) 2 puffs inhalation Q6H PRN Drysol Dab-O-Matic 20% (aluminum chloride) 1 appl topical 2XW PRN NS norgestimate-ethinyl estradiol 0.18/0.215/0.25 mg-35 mcg (28) (Tri-Sprintec (28)) 1 tab PO DAILY ubrogepant (Ubrelvy) 0 mg PO Tobacco use date assessed: 11/28/23 Dental Screening Dental Screen Date: 11/28/23 Did you have a dental visit in the last 12 months?: Yes Did you have a dental problem in the last 6 months where you did not have access to dental care?: No Was dental information given to patient?: Patient has dentist HPI PE HPI Details 37-year-old lady, here today for a physical exam. Last Pap smear was done in [facility] intranet specialist clinic in 2019 with normal findings, now sees [facility] in [facility], and has an appointment for her pelvic exam and Pap smear already scheduled. She is 19 months with her daughter and is now currently on control prescribed by her OB. Up-to-date with her Tdap given in 2021 and is up-to-date with her pneumonia vaccination and already received her flu shot from work last week. She however does not want to get a COVID booster She has mild intermittent asthma only using albuterol inhaler as a rescue for episodes of bronchospasm and wheezing. Has migraine headache, currently taking Ubrelvy as needed, sees Dr. Angulo at [facility] neurology. Complains of thick discolored friable toenails in both big toes, would like to get this checked and make sure it is not fungal infection. Has tried [id number]-[id number] topical treatment for fungus in the nail which has not afforded any improvement. Complaining of pain in left ear canal, with clear ear discharge on and off for the last several days. Denies any headache, no decreased hearing, now recent sinus infection.. Has seasonal allergies currently not active at this time. [facility] Medical History (Updated 11/28/23 @ 08:58 by Joanna Montoya MD) Acquired deformity of toenail Vitamin D deficiency Intermittent palpitations Mild intermittent asthma Food allergy Environmental and seasonal allergies Migraine Seasonal allergies Family History Mother Heart murmur Father Hx of diabetes mellitus Maternal Grandmother Hx of diabetes mellitus Social History Housing: House Alcohol intake: never Patient Tobacco Use Status: Never used Tobacco e-Cigarette/Vaping Use: Never Used Second Hand Smoke Exposure: No service: No Current occupational status: employed Gender identity: Female Cognitive needs: No Hearing needs: No Vision needs: Yes Female Reproductive History Menstrual Age of Menarche: 11 Other: Sees [facility] for her routine Pap and pelvic exam, prescribed control pills after the of her 3rd daughter Questionnaire PHQ-9 Over the last 2 weeks, how often have you been bothered by any of the following problems? 1. Little interest or pleasure in doing things: not at all 2. Feeling down, depressed, or hopeless: not at all 3. Trouble falling or staying asleep, or sleeping too much: not at all 4. Feeling tired or having little energy: not at all 5. Poor appetite or overeating: not at all 6. Feeling bad about yourself - or that you are a failure or have let yourself or your family down: not at all 7. Trouble concentrating on things, such as reading the newspaper or watching television: not at all 8. Moving or speaking so slowly that other people could have noticed. Or the opposite - being so fidgety or restless that you have been moving around a lot more than usual: not at all 9. Thoughts that you would be better off or of hurting yourself in some way: not at all Total score: 0 Depression Screening Interpretation: Negative Depression Screening Done: Yes 96263 - PHQ-9 Billing: Yes Source: Developed by Drs. Rodrigo Quijano, Michael Hernandez and colleagues, with an educational yanique from [employer]. Thrive Questionnaire Date Thrive assessed: 11/10/22 I am a: Patient What is your living situation today?: I have a steady place to live Within the past 12 months, did the food you bought not last and you didn't have the money to get more?: Never true Within the past 12 months, did you worry whether your food would run out before you got money to buy more?: Never true Do you have trouble paying for medicines?: No Do you have trouble getting transportation to medical appointments?: No Do you have trouble paying your heating and electricity bill?: No Do you have trouble taking care of your child, family member or friend?: No Do you have trouble with day-to-day activities such as bathing, preparing meals, shopping, managing finances, etc.?: No Are you interested in more education?: No Please select the resources that you would like help with: None Currently or been in a relationship where the following occur: No concerns reported THRIVE Score: 0 AUDIT C Alcohol Use Questionnaire (AUDIT-C) 1. How often do you have a drink containing alcohol?: Never Total Score: 0 SERGIO-7 AMB Questionnaire SERGIO-7 Date SERGIO - 7 assessed: 11/10/22 Feeling nervous, anxious, or on edge: 0 = Not at all Not being able to stop or control worryin = Not at all Worrying too much about different things: 0 = Not at all Trouble relaxin = Not at all Being so restless that it is hard to sit still: 0 = Not at all Becoming easily annoyed or irritable: 0 = Not at all Feeling afraid as if something awful might happen: 0 = Not at all Total SERGIO-7 score (0-4 normal; 5-9 mild; 10-14 moderate; 15-21 severe): 0 Source: Developed by Re Garcia Kurt Kroenke and colleagues, with an educational yanique from [employer]. SERGIO-7 Assessment Billing SERGIO-7 Assessment Tool: SERGIO-7 Assessment 47389 Review of Systems Const Denies body aches, Denies fatigue, Denies fever(s), Denies headache(s) (Migraine headaches controlled on Ubrelvy) and Denies weakness Eyes Denies change in vision, Denies eye discharge and Denies itchy eyes ENT Denies dizziness, Denies headache(s) (Migraine headaches controlled on Ubrelvy), Denies nasal congestion, Denies nasal discharge and Denies sore throat Card Denies chest pain, Denies lightheadedness, Denies palpitations and Denies dyspnea Resp Denies chest congestion, Denies cough, Denies dyspnea and Denies wheezing GI Denies abdominal pain, Denies change in bowel habits and Denies heartburn Denies hematuria, Denies urinary frequency, Denies dysuria and Denies urinary urgency Musc Reports no additional complaints Skin/Breast Denies breast pain, Denies breast mass, Denies lesions and Denies rash Neuro Denies dizziness, Denies headache(s) (Migraine headaches controlled on Ubrelvy) and Denies weakness Psych Reports no additional complaints Endo Denies fatigue, Denies polydipsia, Denies polyuria and Denies palpitations Marco A/Lymph Denies easy bruising Aller/Immun Denies itchy eyes, Denies seasonal rhinorrhea and Denies wheezing Physical exam (Primary Care) Vital Signs: Last Vital Signs Pulse 89 11/28/23 08:20 BP 132/92 H 11/28/23 08:20 Pulse Ox 95 11/28/23 08:20 Oxygen Delivery Method Room Air 11/28/23 08:20 BMI result Body Mass Index 32.2 Tobacco/Smoking Status: Tobacco use Status Tobacco use date assessed 11/28/23 11/28/23 08:23 Patient Tobacco Use Status Never used Tobacco 11/28/23 08:23 e-Cigarette/Vaping Use Never Used 11/28/23 08:23 PHQ-9: PHQ-9 Score PHQ-9: Total score 0 11/28/23 08:33 Depression Screening Interpretation: Negative Thrive Assessment: Date of Thrive Assessment Date Thrive assessed 11/10/22 11/28/23 08:23 Currently or been in a relationship where the following occur: No concerns reported Advance Care Planning discussion: Completed/Scanned Date of discussion: 11/28/23 Who was present: Patient Forms completed: Health Care Proxy Time spent: 16-45 minutes Actual minutes spent: 16 Const General: no acute distress and alert Orientation/consciousness: patient oriented x3 HENMT Other: Swollen left external auditory canal with pain on inspection, unable to fully visualize left tympanic membrane, increased moisture in left ear canal noted, positive tragal tenderness on left Head: Yes normocephalic Ears: external ears normal General nose exam: Normal external nose present and No nasal discharge present Face and sinus: Yes face symmetric Mouth: Normal oral and palatal mucosa present, oropharynx normal and moist mucous membranes Eyes General: appearance normal, both eyes and all related structures Eyelids: Yes eyelids normal Conjunctivae: conjunctivae normal Sclerae: sclerae normal Pupils: Equal, round and reactive pupils present EOM: EOMs intact bilaterally Neck Neck: Yes full ROM, Yes no lymphadenopathy and Yes supple Thyroid: Thyroid normal Chest Chest palpation & inspection: normal inspection of the chest Breast/axilla inspection: normal inspection of the breasts Breast/axilla palpation: normal palpation of the breasts Resp Effort & Inspection: normal respiratory effort and able to speak in complete sentences Auscultation: clear to auscultation bilaterally Cardio Rate: regular rate Rhythm: regular rhythm Heart sounds: S1 normal heart sound present and S2 normal heart sound present GI Palpation (GI): Soft to palpation, nontender, no guarding and no masses Auscultation: normal bowel sounds General: Yes no CVA tenderness Back/Spine/Pelvis Back: no CVA tenderness and No back tenderness Skin General skin exam: no rashes or lesions noted Nails: yellow and thickened (Toenails on big toes bilateral) Neuro General: patient oriented x3, gait normal, moves all extremities, Normal light touch and pain sensation, no focal motor deficits and CN's II-XI intact bilaterally Cranial nerves: Yes Equal, round and reactive pupils present Cognition (Neuro): normal cognition Gait exam (Neuro): Normal gait present Motor exam (neuro): 5/5 motor strength present throughout Extrem General: Yes normal to inspection, Yes full ROM, Yes no joint enlargement, Yes no pedal edema and Yes normal gait Psych Appearance: grossly normal and well kempt Mental Status: mental status grossly normal Speech and movement: Normal speech and movement present Affect: normal affect Attitude: cooperative Thought process: Normal thought process present Thought content: Normal thought content present Assessment and Plan Assessment & Plan (1) Annual visit for general adult medical examination with abnormal findings: Code(s): Z00.01 - Encounter for general adult medical examination with abnormal findings Plan: Will check appropriate labs. Continue regular dental visit every 6 months and regular eye exams, at least every 2 years, goes [facility]. Take adequate calcium in diet and vitamin-D 3 at 2000 IU per cap once a day, in addition to weight-bearing exercises to help maintain good muscle tone and weight control. Instructed to do self-breast exam, and recommended to get yearly mammogram, starting at age 40. Up-to-date with her flu vaccine, and Tdap as well as pneumococcal vaccination, does not want to get further COVID fasting booster (2) Acquired deformity of toenail: Code(s): L60.8 - Other nail disorders Plan: Referred to [facility] for further evaluation management (3) Acute otitis externa of left ear: Code(s): H60.502 - Unspecified acute noninfective otitis externa, left ear Qualifiers: Otitis externa type: unspecified type Qualified Code(s): H60.502 - Unspecified acute noninfective otitis externa, left ear Plan: Prescription sent for ciprofloxacin-dexamethasone otic drops 4 drops in left ear canal twice a day for 7 days, call if no improvement of symptoms after a week (4) Mild intermittent asthma: Code(s): J45.20 - Mild intermittent asthma, uncomplicated Qualifiers: Asthma complication type: uncomplicated Qualified Code(s): J45.20 - Mild intermittent asthma, uncomplicated Plan: Uncomplicated, rarely needs to use her albuterol inhaler, up-to-date with her flu vaccine needs this year and pneumonia vaccine, does not want to get further COVID booster vaccination (5) Intermittent palpitations: Code(s): R00.2 - Palpitations Plan: Occurring rarely, has been evaluated by Cardiology after delivery of her 3rd child. Echocardiogram showing borderline pulmonary hypertension. There are no obvious significant arrhythmias at this point time. No signs or symptoms of heart failure. (6) Encounter for counseling regarding advance directives: Code(s): Z71.89 - Other specified counseling Plan: Initiated the conversation about Advanced Directives. Advanced Directives help patients prepare for current and future decisions about their medical treatment and place of care. Discussed with patient that it is a process where a patients current condition and prognosis are reviewed, their wishes for information regarding their illness are elicited, and likely medical dilemmas are presented and options discussed. Healthcare proxy form completed today The form can be amended as needed, reviewed yearly and make changes as needed Orders: Orders Liver Panel Today E55.9 - Vitamin D deficiency, unspecified, G43.909 - Migraine, unspecified, not intractable, without status migrainosus, J30.89 - Other allergic rhinitis, J45.20 - Mild intermittent asthma, uncomplicated, L60.8 - Other nail disorders, R00.2 - Palpitations, Z00.01 - Encounter for general adult medical examination with abnormal findings Lipid Panel Today E55.9 - Vitamin D deficiency, unspecified, G43.909 - Migraine, unspecified, not intractable, without status migrainosus, J30.89 - Other allergic rhinitis, J45.20 - Mild intermittent asthma, uncomplicated, L60.8 - Other nail disorders, R00.2 - Palpitations, Z00.01 - Encounter for general adult medical examination with abnormal findings Basic Metabolic Panel Fasting Today E55.9 - Vitamin D deficiency, unspecified, G43.909 - Migraine, unspecified, not intractable, without status migrainosus, J30.89 - Other allergic rhinitis, J45.20 - Mild intermittent asthma, uncomplicated, L60.8 - Other nail disorders, R00.2 - Palpitations, Z00.01 - Encounter for general adult medical examination with abnormal findings Vitamin D 25-OH Total Today E55.9 - Vitamin D deficiency, unspecified, G43.909 - Migraine, unspecified, not intractable, without status migrainosus, J30.89 - Other allergic rhinitis, J45.20 - Mild intermittent asthma, uncomplicated, L60.8 - Other nail disorders, R00.2 - Palpitations, Z00.01 - Encounter for general adult medical examination with abnormal findings Complete Blood Count Auto Diff Today E55.9 - Vitamin D deficiency, unspecified, G43.909 - Migraine, unspecified, not intractable, without status migrainosus, J30.89 - Other allergic rhinitis, J45.20 - Mild intermittent asthma, uncomplicated, L60.8 - Other nail disorders, R00.2 - Palpitations, Z00.01 - Encounter for general adult medical examination with abnormal findings Referrals Podiatry Referral L60.8 - Other nail disorders Medications: New ciprofloxacin-dexamethasone 0.3-0.1 % 4 drps otic (ears) BID 7.5 mL 0RF 7 days H60.502 - Unspecified acute noninfective otitis externa, left ear Coding Level of Care Code Est Pt Prev Care 18-39y(38172) Diagnoses Annual visit for general adult medical examination with abnormal findings Z00.01 Acquired deformity of toenail L60.8 Acute otitis externa of left ear, unspecified type H60.502 Otitis externa type: unspecified type Mild intermittent asthma without complication J45.20 Asthma complication type: uncomplicated Intermittent palpitations R00.2 Encounter for counseling regarding advance directives Z71.89 Additional Codes SERGIO-7 Assessment Billing - SERGIO-7 Assessment Tool: SERGIO-7 Assessment 52999 ([id number]) Vital Signs *Quality* - Advance Care Planning discussion: Completed/Scanned ([id number]) Vital Signs *Quality* - Time spent: 16-45 minutes ([id number])
== END 2023-11-28 09:09 | disposition home or self-care (01) ==
PROVIDERS: PCP Internal Medicine; Visit Provider Internal Medicine
DX: Z00.01 Encounter for general adult medical examination with abnormal findings (principal); L60.8 Other nail disorders; H60.502 Unspecified acute noninfective otitis externa, left ear; J45.20 Mild intermittent asthma, uncomplicated; R00.2 Palpitations; Z71.89 Other specified counseling

== ENCOUNTER → 2023-11-28 07:53 | Outpatient (BNVA) | payer OTHER, MEDICAID, SELFPAY | PROVIDERS: PCP Internal Medicine; Visit Provider Internal Medicine | DX: Z00.00 Encounter for general adult medical examination without abnormal findings (principal) ==

== ENCOUNTER 2023-11-28 08:51 | Outpatient (REF) | payer OTHER, MEDICAID, SELFPAY ==
[2023-11-28 10:21] LABS: MANUAL DIFF FLAG NO
[2023-11-28 10:33] LABS: Basophils Absolute Auto 0.1 X10*3/uL (0.0-0.2); Basophils Percent Auto 0.8 % (0-2); Eosinophils Absolute Auto 0.5 X10*3/uL (0.0-0.4); Eosinophils Percent Auto 5.2 % (0-4); Hematocrit 39.5 % (37.0-47.0); Hemoglobin 13.1 g/dl (12.0-16.0); Imm Gran Abs Auto 0.02 X10*3/uL (0.00-0.03); Imm Gran Pct Auto 0.2 % (0.0-0.4); Lymphocytes Absolute Auto 1.8 X10*3/uL (1.2-4.9); Lymphocytes Percent Auto 17.8 % (20-40); Mean Corpuscular HGB Conc 33.2 g/dl (31.0-35.0); Mean Corpuscular Hemoglobin 28.2 pg (27.0-33.0); Mean Corpuscular Volume 85.1 fL (80.0-98.0); Monocytes Absolute Auto 0.5 X10*3/uL (0.1-1.2); Monocytes Percent Auto 4.7 % (2-11); Neutrophils Percent Auto 71.3 % (45-73); Platelet Count 264 X10*3/uL (160-400); Red Blood Count 4.64 X10*6/uL (4.20-5.50); Red Cell Distribution Width 13.3 % (11.0-16.0); White Blood Count 9.8 X10*3/uL (4.8-10.8)
[2023-11-28 11:21] LABS: Alanine Aminotransferase 13 U/L (0-31); Albumin Level 4.2 g/dL (3.5-5.0); Alkaline Phosphatase 44 U/L (39-117); Anion Gap 15 (12-20); Aspartate Amino Transferase 19 U/L (5-31); Bilirubin Direct 0.1 mg/dL (0.0-0.5); Bilirubin Total 0.5 mg/dL (0.0-1.0); Blood Urea Nitrogen 11 mg/dL (9-16); Calcium 9.2 mg/dL (8.4-10.2); Carbon Dioxide 20 mmol/L (22-29); Chloride 106 mmol/L (96-108); Cholesterol 198 mg/dL (<200); Estimated Glomerular Filt Rate > 60; Glucose Fasting 93 mg/dL (60-99); HDL Cholesterol 64 mg/dL (>40); LDL Cholesterol Calculated 111 mg/dL (<100); Potassium 4.1 mmol/L (3.3-5.1); Sodium 137 mmol/L (135-145); Total Protein 8.1 g/dL (6.5-8.0); Triglycerides 117 mg/dL (<150)
[2023-11-28 11:25] LABS: Vitamin D 25-OH Total 33.1 ng/mL (>30)
== END 2023-11-28 08:52 | disposition home or self-care (01) ==
LOC: HO.HMGCLDS 08:51
PROVIDERS: PCP Internal Medicine; Visit Provider Internal Medicine
DX: Z00.01 Encounter for general adult medical examination with abnormal findings (principal); L60.8 Other nail disorders; G43.909 Migraine, unspecified, not intractable, without status migrainosus; E55.9 Vitamin D deficiency, unspecified; R00.2 Palpitations; J45.20 Mild intermittent asthma, uncomplicated; H60.502 Unspecified acute noninfective otitis externa, left ear; J30.89 Other allergic rhinitis; Z79.899 Other long term (current) drug therapy
CPT/HCPCS: 36415; 80048; 80061; 80076; 82306; 85025; 96127

== ENCOUNTER 2024-12-03 07:57 | Outpatient (AMB) | payer OTHER, MEDICAID, SELFPAY ==
--- OUTSIDE RECORDS SUMMARY | 2024-03-28 10:00 | XMS_ITS ---
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 Name Role Phone Lindsay SNOW, Joanna Anthony Primary Care Provider Un available Rich Clifford Unavailable [phone] Kandace Anderson Unavailable [phone] REASON FOR VISIT r/s for sooner apt [...] 03/28/2024 Encounters Encounter Location Date Provider Diagnosis [facility] [address] [place] [address] 03/28/2024 Kandace Anderson Plan Of Treatment No Information Progress Notes * Destin MARTINSOB: 6 (38 yo F)Acc No.[id number]:03/28/2024 Progress Notes Patient: Manuel CHERIKANE Yamini Provider: Cheryl Anderson DPM :1985 A ge:38 Y S ex:Female Date:03/28/2024 Address:[address] [place] [address] [facility] Pcp:Manuel Pelayo Subjective: * Chief Complaints: * [...] 3. Exercise: no. Marital status: . 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 * Medications: T aking Tri-Sprintec , Taking [...] 03/28/2024 Generated for Christy cintron/Brooke/Alanitting on: 0 12/03/2024 08:01 AM EDT
--- OUTSIDE RECORDS SUMMARY | 2024-12-03 08:01 | XMS_ITS | Clinical Summary ---
Author Organization [facility] Address [address] [place] [address] Phone Care Team Providers Care Roving Marker Name Role Phone Unavailable Primary Care Provider Unavailabl e Immunizations Immunization Administration Dates Next Due DTP 08/12/1990, 9,07/12/1986,1986,03/06/1986 Hep B, ped/adol 06/05/1997,02/20/1997,01/16/1997 Hib (HbOC) 08/31/1988 MMR 06/11/1997,04/15/1987 OPV 08/12/1990, 9,05/17/1986,1985 Td (adult) (MBL), 2 Lf tetan us toxoid, PF, adsorbed 10/27/1999 Social History Tobacco Use Types Packs/Day Years Used Date Smoking Tobacco: Never Assessed Comments Unknown Sex and Gender Information Value Date Recorded Sex Assigned at Not on file Legal Sex Female 4:29 PM EDT Gender Identity Not on file Sexual Orientation Not on file Plan of Treatment Health Maintenance Due Date Last Done Comments Varicella Vaccines (1 of 2 - 13+ 2-dose series) 1998 DTaP,Tdap,and Td Vaccines (6 - Tdap) 10/28/1999 10/27/1999, 08/12/1990, 08/31/1988, Additional history exists HPV Vaccines (1 - 3-dose SCDM series) 2012 Influenza Vaccines (#1) 2024 COVID-19 Vaccine ( - season) 2024 HIB Vaccines Completed 08/31/1988 IPV Vaccines Completed 08/12/1990, 08/13, 05/17/1986, Additional history exists Hepatitis B Vaccines Completed 06/05/1997, 02/20/1997, 01/16/1997 MMR Vaccines Completed 06/11/1997, 04/15/1987 Hepatitis A Vaccines Aged Out No long er eligible based on patient's age to complete this topic Men B Vaccine Aged Out No longer elig ible based on patient's age to complete this topic Meningococcal Vaccine Aged Out No rhianna cedric eligible based on patient's age to complete this topic Pneumococcal Vaccine Aged Out No long er eligible based on patient's age to complete this topic
--- OUTSIDE RECORDS SUMMARY | 2024-12-03 08:01 | XMS_ITS | Clinical Summary ---
Author Organization [employer] Address [address] [place] [address] [address] [place] [address] Care Team Providers Care Park Attendant Name Role Phone Unavailable Primary Care Provider Unavailabl e Immunizations Immunization Administration Dates Next Due Influenza, seasonal, injectable, preservative fr ee 11/23/2023 Social History Tobacco Use Types Packs/Day Years Used Date Smoking Tobacco: Never Assessed Comments Unknown Sex and Gender Information Value Date Recorded Sex Assigned at Female 01/11/2022 10:37 AM EDT Legal Sex Female 10:37 AM EDT Gender Identity Female 01/11/2022 10:37 AM EDT Sexual Orientation Straight 01/11/2022 10 :37 AM EDT Plan of Treatment Health Maintenance Due Date Last Done Comments Depression Screening 1985 HIV Screening 1985 SDOH Screening 1985 Disability Screening 1985 Alcohol/Substance Use Screening 1997 Tobacco Screening 1997 Family Planning (PISQ) 2000 HPV Vaccines (1 - 3-dose series) 2000 Hepatitis C Screening 12/28/2003 Pap Smear 2006 Cervical Cancer Screening 12/28/2015 HPV/Cotest 12/28/2015 Pneumococcal Vaccine: Pediatrics (0 to 5 Years) and At-Risk Patients (6 to 49) Years (2 of 2 - PCV) 04/02/2020 04/02/2019 COVID-19 Vaccine ( - season) 2024 03/12/2021, 04/24/2020, 03/27/2020 Influenza Vaccine (#1) 2024 , 12/02/2022, 11/26/2021, Additional history exists DTaP/Tdap/Td Vaccines (7 - Td or Tdap) 02/09/2032 02/08/2022, 10/27/1999, 08/12/1990, Additional history exists Zoster Vaccines (1 of 2) 12/28/2035 RSV Patients and Patients Aged 60 years or older (1 - 1-dose 75+ series) 2060 HIB Vaccines Completed 08/31/1988 IPV Vaccines Completed 08/12/1990, 08/13, 05/17/1986, Additional history exists Hepatitis B Vaccines Completed 06/05/1997, 02/20/1997, 01/16/1997 Hepatitis A Vaccines Aged Out No long er eligible based on patient's age to complete this topic Meningococcal B Vaccine Aged Out No l onger eligible based on patient's age to complete this topic Meningococcal Vaccine Aged Out No rhianna cedric eligible based on patient's age to complete this topic RSV under 20 months Aged Out No longe r eligible based on patient's age to complete this topic Rotavirus Vaccines Aged Out No longer eligible based on patient's age to complete this topic [place] [address] [place] [address]
--- OUTSIDE RECORDS SUMMARY | 2024-12-03 08:01 | XMS_ITS | Patient Health Record ---
[facility] Organization [facility] Pen[facility] cristobal [place] Address [address] [facility] [place] [address] Care Team Providers Care Customer Leader Name Role Phone Lindsay SNOW, Joanna Anthony Primary Care Provider Un available CliffordRich Unavailable [phone] Kandace Anderson Unavailable [phone] Reason For Referral No Information Medications Medication SIG (Take, Route, Fr equency, Duration) Notes Start Date End Date Status Tri-Sprintec Active Ubrelvy Active Albuterol Active Albuterol Active Tri-Sprintec Active Ciclopirox 8 % 1 application daily to toenails Externally Once a day; Duration: 90 days Active Social History Tobacco Use: Social History Observation Description Date Details (start date - stop date) Never Smoker NA - NA Alcohol Screen Question Answer Notes Did you have a drink containing alcohol in the p ast year? No Points 0 Interpretation Negative Tobacco use other than smoking: Question Answer Notes Are you an other tobacco user? No Tobacco Control (Standard) Question Answer Notes Tobacco use: Nonsmoker Additional Findings: Tobacco non-user Current no nsmoker Vital Signs Height 5ft 2in in 04/10/2024 Weight 170 lbs 04/10/2024 BMI 31.09 kg/m2 04/10/2024 Encounters Encounter Location Date Provider Diagnosis [address] [address] 01/10/2024 Rich Clifford Onychomycosis B35.1 ; Pain in right toe(s) M79.674 and Pain in left toe(s) M79.[address] [address] 04/10/2024 Rich Clifford Onychomycosis B35.1 ; Pain in right toe(s) M79.674 and Pain in left toe(s) M79.675 [facility] [place] [address] [place] [address] 12/15/2023 Kandace Anderson Assessments Encounter Date Diagnosis (ICD Code) Assessment Notes Treatment Notes Treatment Clinical Notes Section Notes 01/10/2024 Pain in right toe(s) (ICD-10 - M79.674) 01/10/2024 Onychomycosis (ICD-10 - B35.1) 04/10/2024 Pain in right toe(s) (ICD-10 - M79.674) 04/10/2024 Onychomycosis (ICD-10 - B35.1) 04/10/2024 Pain in left toe(s) (ICD-10 - M79.675) 01/10/2024 Pain in left toe(s) (ICD-10 - M79.675) Plan Of Treatment No Information Insurance Providers Payer Name Payer Address Payer Phone Subscriber Number Group Number Insured Name Patient Relationship to Insured Coverage Start Date Coverage End Date [facility] [address] [place] [address] [phone] [id number] Yamini Martins Self - patient is the insured Medical (General) History Medical History History ICD Code asthma Headaches/Migraines Chicken pox
--- NOTE | 2024-12-03 08:02 | MHC.PC.OV ---
Vital Signs 12/03/24 08:06 Height 5 ft 2 in Weight 174 lb BMI 31.8 BP 122/80 Blood Pressure Location Rt brachial Position Sitting Respiration 16 Pulse 83 Pulse Source Pulse Oximeter Temp 98.3 F Temp Source Oral Pulse Oximetry (%) 99 Oxygen Delivery Method Room Air Intake Visit Reasons: PE Intake Note: Pt is here today for her PE: Last papsmear 12/26/23 Is last menstrual period known: Yes Last menstrual period: 11/02/24 Allergies advil Allergy (Unknown, Uncoded 12/03/24 08:21) swelling Strawberries, Apples Allergy (Unknown, Uncoded 12/03/24 08:21) itching Medication List - Last Reconciled 12/03/24 by Joanna Montoya MD albuterol sulfate 90 mcg/actuation (Ventolin HFA) 2 puffs inhalation Q6H PRN Drysol Dab-O-Matic 20% (aluminum chloride) 1 appl topical 2XW PRN NS norgestimate-ethinyl estradiol 0.18/0.215/0.25 mg-0.035mg (28) (Tri-Sprintec (28)) 1 tab PO DAILY ubrogepant (Ubrelvy) 0 mg PO Tobacco use date assessed: 12/03/24 Dental Screening Dental Screen Date: 12/03/24 Did you have a dental visit in the last 12 months?: Yes Did you have a dental problem in the last 6 months where you did not have access to dental care?: No Was dental information given to patient?: Patient has dentist HPI PE HPI Details 38-year-old lady with history of mild intermittent asthma, environmental seasonal allergies, pulmonary hypertension, migraine, here today for her physical exam. She goes to [facility] for her routine cervical cancer screening and pelvic exam, with last Pap smear done 12/26/2023 with at [facility] showing unsatisfactory specimen for re-evaluation due to obscuring exudate. Patient currently is on control pills for contraception. She has chronic migraines, currently followed at [facility] neurology by Dr. Angulo and doing well with Ubrelvy. Has mild intermittent asthma, uses albuterol as needed, requires a refill [facility] Medical History (Updated 12/03/24 @ 08:36 by Joanna Montoya MD) Acquired deformity of toenail Vitamin D deficiency Intermittent palpitations Mild intermittent asthma Food allergy Environmental and seasonal allergies Migraine Seasonal allergies Family History Mother Heart murmur Father Hx of diabetes mellitus Maternal Grandmother Hx of diabetes mellitus Social History Housing: House Alcohol intake: never Patient Tobacco Use Status: Never used Tobacco e-Cigarette/Vaping Use: Never Used Second Hand Smoke Exposure: No service: No Current occupational status: employed Gender identity: Female Cognitive needs: No Hearing needs: No Vision needs: Yes Female Reproductive History Menstrual Age of Menarche: 11 Date of last menstrual period: 11/02/24 Questionnaire PHQ-9 Over the last 2 weeks, how often have you been bothered by any of the following problems? 1. Little interest or pleasure in doing things: not at all 2. Feeling down, depressed, or hopeless: not at all 3. Trouble falling or staying asleep, or sleeping too much: not at all 4. Feeling tired or having little energy: not at all 5. Poor appetite or overeating: not at all 6. Feeling bad about yourself - or that you are a failure or have let yourself or your family down: not at all 7. Trouble concentrating on things, such as reading the newspaper or watching television: not at all 8. Moving or speaking so slowly that other people could have noticed. Or the opposite - being so fidgety or restless that you have been moving around a lot more than usual: not at all 9. Thoughts that you would be better off or of hurting yourself in some way: not at all Total score: 0 Depression Screening Interpretation: Negative Depression Screening Done: Yes 71185 - PHQ-9 Billing: Yes Source: Developed by Drs. Rodrigo Quijano, Re Goff, Michael Malone and colleagues, with an educational yanique from [employer]. Thrive Questionnaire Date Thrive assessed: 11/28/24 I am a: Patient What is your living situation today?: I have a steady place to live Within the past 12 months, did the food you bought not last and you didn't have the money to get more?: Never true Within the past 12 months, did you worry whether your food would run out before you got money to buy more?: Never true Do you have trouble paying for medicines?: No Do you have trouble getting transportation to medical appointments?: No Do you have trouble paying your heating and electricity bill?: No Do you have trouble taking care of your child, family member or friend?: No Do you have trouble with day-to-day activities such as bathing, preparing meals, shopping, managing finances, etc.?: No Are you currently unemployed and looking for a job?: No Are you interested in more education?: No Please select the resources that you would like help with: None Currently or been in a relationship where the following occur: No concerns reported THRIVE Score: 0 AUDIT C Alcohol Use Questionnaire (AUDIT-C) 1. How often do you have a drink containing alcohol?: Never 3. How often do you have six or more drinks on one occasion?: Never Total Score: 0 Score Reviewed/Action Taken: Yes SERGIO-7 AMB Questionnaire SERGIO-7 Date SERGIO - 7 assessed: 12/03/24 Feeling nervous, anxious, or on edge: 0 = Not at all Not being able to stop or control worryin = Not at all Worrying too much about different things: 0 = Not at all Trouble relaxin = Not at all Being so restless that it is hard to sit still: 0 = Not at all Becoming easily annoyed or irritable: 0 = Not at all Feeling afraid as if something awful might happen: 0 = Not at all Total SERGIO-7 score (0-4 normal; 5-9 mild; 10-14 moderate; 15-21 severe): 0 Source: Developed by Drs. Rodrigo Quijano, Re Goff, Michael Malone and colleagues, with an educational yanique from [employer]. SERGIO-7 Assessment Billing SERGIO-7 Assessment Tool: SERGIO-7 Assessment 99123 Review of Systems Const Denies body aches, Denies fatigue, Denies fever(s), Denies headache(s) (Migraine headaches controlled on Ubrelvy) and Denies weakness Eyes Details: Gets eye exam at [facility] in [place] mole Denies change in vision and Reports requires corrective lenses ENT Denies dizziness, Denies headache(s) (Migraine headaches controlled on Ubrelvy), Denies nasal congestion, Denies nasal discharge and Denies sore throat Card Denies chest pain, Denies lightheadedness, Denies palpitations and Denies dyspnea Resp Denies chest congestion, Denies cough, Denies dyspnea and Denies wheezing GI Denies abdominal pain, Denies change in bowel habits and Denies heartburn Denies hematuria, Denies urinary frequency, Denies dysuria and Denies urinary urgency Musc Reports no additional complaints Skin/Breast Denies breast pain, Denies breast mass, Denies lesions and Denies rash Neuro Denies dizziness, Denies headache(s) (Migraine headaches controlled on Ubrelvy) and Denies weakness Psych Reports no additional complaints Endo Denies fatigue, Denies polydipsia, Denies polyuria and Denies palpitations Marco A/Lymph Denies easy bruising Aller/Immun Denies seasonal rhinorrhea and Denies wheezing Physical exam (Primary Care) Vital Signs: Last Vital Signs Temp 98.3 F 12/03/24 08:06 Pulse 83 12/03/24 08:06 Resp 16 12/03/24 08:06 BP 122/80 12/03/24 08:06 Pulse Ox 99 12/03/24 08:06 Oxygen Delivery Method Room Air 12/03/24 08:06 BMI result Body Mass Index 31.8 Tobacco/Smoking Status: Tobacco use Status Tobacco use date assessed 12/03/24 12/03/24 08:11 Patient Tobacco Use Status Never used Tobacco 12/03/24 08:11 e-Cigarette/Vaping Use Never Used 12/03/24 08:11 PHQ-9: PHQ-9 Score PHQ-9: Total score 0 12/03/24 08:22 Depression Screening Interpretation: Negative Thrive Assessment: Date of Thrive Assessment Date Thrive assessed 11/28/24 12/03/24 08:11 Currently or been in a relationship where the following occur: No concerns reported Const General: no acute distress and alert Orientation/consciousness: patient oriented x3 HENMT Head: Yes normocephalic Ears: external ears normal General nose exam: Normal external nose present and No nasal discharge present Face and sinus: Yes face symmetric Mouth: Normal oral and palatal mucosa present, oropharynx normal and moist mucous membranes Eyes General: appearance normal, both eyes and all related structures Eyelids: Yes eyelids normal Conjunctivae: conjunctivae normal Sclerae: sclerae normal EOM: EOMs intact bilaterally Neck Neck: Yes full ROM, Yes no lymphadenopathy and Yes supple Thyroid: Thyroid normal Chest Chest palpation & inspection: normal inspection of the chest Breast/axilla inspection: normal inspection of the breasts Breast/axilla palpation: normal palpation of the breasts Resp Effort & Inspection: normal respiratory effort and able to speak in complete sentences Auscultation: clear to auscultation bilaterally Cardio Rate: regular rate Rhythm: regular rhythm Heart sounds: S1 normal heart sound present and S2 normal heart sound present GI Palpation (GI): Soft to palpation, nontender, no guarding and no masses Auscultation: normal bowel sounds General: Yes no CVA tenderness Back/Spine/Pelvis Back: no CVA tenderness and No back tenderness Skin General skin exam: no rashes or lesions noted Neuro General: patient oriented x3, gait normal, moves all extremities, Normal light touch and pain sensation and no focal motor deficits Cognition (Neuro): normal cognition Gait exam (Neuro): Normal gait present Extrem General: Yes normal to inspection, Yes full ROM, Yes no joint enlargement, Yes no pedal edema and Yes normal gait Psych Appearance: grossly normal and well kempt Mental Status: mental status grossly normal Speech and movement: Normal speech and movement present Affect: normal affect Office Procedures Flu Questionnaire Does the patient have a severe egg allergy?: No Does the patient have severe life threatening allergies?: No Does the patient have a fever or illness today?: No Has the patient ever had Guillain-Seminole Syndrome?: No Has the patient ever had any past reaction to a flu shot?: No Immunizations Fluarix 0518-1002 (PF) 45 mcg (15 mcg x 3)/0.5 mL IM syringe Performing Provider: Joanna Montoya MD Performing Location: [facility] Administered by: Bianca Corbett CMA on 12/03/24 08:36 Dose Route Admin Location Dispensed Lot Number Expiration Date NDC Signwriter 0.5 mL IM Left Deltoid 0.5 mL [id number] 09/10/25 [id number] [employer] VIS Given Date VIS Provided VIS Publication Date 12/03/24 Single Vaccine 24 Eligibility Eligibility Date Funding Source Not [facility] Eligible 12/03/24 Private Coding Level of Care Code Est Pt Prev Care 18-39y(13224) Diagnoses Annual visit for general adult medical examination with abnormal findings Z00.01 Uses oral contraceptives Z30.41 Migraine with aura and without status migrainosus, not intractable G43.109 Migraine type: migraine (< 15 days per month) with aura Status migrainosus presence: without status migrainosus Intractability: not intractable Mild intermittent asthma without complication J45.20 Asthma complication type: uncomplicated Additional Codes SERGIO-7 Assessment Billing - SERGIO-7 Assessment Tool: SERGIO-7 Assessment 19862 ([id number]) PHQ-9 - 18354 - PHQ-9 Billing: Yes ([id number]) Assessment & Plan Assessment & Plan (1) Annual visit for general adult medical examination with abnormal findings: Code(s): Z00.01 - Encounter for general adult medical examination with abnormal findings Plan: Will check appropriate labs. Recommended dental visit every 6 months and regular eye exams, at least every 2 years, goes to [facility]. Take adequate calcium in diet and vitamin-D 3 at 2000 IU per cap once a day, in addition to weight-bearing exercises to help maintain good muscle tone and weight control. Instructed to do self-breast exam, and recommended to get yearly mammogram, starting at age 40. Advised to call her OBGYN and reschedule to have another cervical cancer screening due to inadequate specimen on last Pap smear done a year ago. Up-to-date with her Tdap, flu shot given today (2) Uses oral contraceptives: Code(s): Z30.41 - Encounter for surveillance of contraceptive pills Plan: Currently prescribed at [facility] (3) Migraine: Comment: without aura, sees [facility] neurology, Dr Angulo Code(s): G43.909 - Migraine, unspecified, not intractable, without status migrainosus Category: Medical Qualifiers: Migraine type: migraine (< 15 days per month) with aura Status migrainosus presence: without status migrainosus Intractability: not intractable Qualified Code(s): G43.109 - Migraine with aura, not intractable, without status migrainosus Plan: Well controlled on on Ubrelvy, followed at [facility] neurology (4) Mild intermittent asthma: Code(s): J45.20 - Mild intermittent asthma, uncomplicated Category: Medical Qualifiers: Asthma complication type: uncomplicated Qualified Code(s): J45.20 - Mild intermittent asthma, uncomplicated Plan: Uses albuterol inhaler as needed. Refill sent Orders: Orders Lipid Panel Today E55.9 - Vitamin D deficiency, unspecified, G43.909 - Migraine, unspecified, not intractable, without status migrainosus, J30.89 - Other allergic rhinitis, J45.20 - Mild intermittent asthma, uncomplicated, Z00.01 - Encounter for general adult medical examination with abnormal findings, Z13.1 - Encounter for screening for diabetes mellitus, Z13.220 - Encounter for screening for lipoid disorders, Z30.41 - Encounter for surveillance of contraceptive pills Vitamin D 25-OH Total Today E55.9 - Vitamin D deficiency, unspecified, G43.909 - Migraine, unspecified, not intractable, without status migrainosus, J30.89 - Other allergic rhinitis, J45.20 - Mild intermittent asthma, uncomplicated, Z00.01 - Encounter for general adult medical examination with abnormal findings, Z13.1 - Encounter for screening for diabetes mellitus, Z13.220 - Encounter for screening for lipoid disorders, Z30.41 - Encounter for surveillance of contraceptive pills Influenza [id number] Immunization Today Z23 - Encounter for immunization Aspartate Amino Transferase Today E55.9 - Vitamin D deficiency, unspecified, G43.909 - Migraine, unspecified, not intractable, without status migrainosus, J30.89 - Other allergic rhinitis, J45.20 - Mild intermittent asthma, uncomplicated, Z00.01 - Encounter for general adult medical examination with abnormal findings, Z13.1 - Encounter for screening for diabetes mellitus, Z13.220 - Encounter for screening for lipoid disorders, Z30.41 - Encounter for surveillance of contraceptive pills Alanine Aminotransferase Today E55.9 - Vitamin D deficiency, unspecified, G43.909 - Migraine, unspecified, not intractable, without status migrainosus, J30.89 - Other allergic rhinitis, J45.20 - Mild intermittent asthma, uncomplicated, Z00.01 - Encounter for general adult medical examination with abnormal findings, Z13.1 - Encounter for screening for diabetes mellitus, Z13.220 - Encounter for screening for lipoid disorders, Z30.41 - Encounter for surveillance of contraceptive pills Basic Metabolic Panel Fasting Today E55.9 - Vitamin D deficiency, unspecified, G43.909 - Migraine, unspecified, not intractable, without status migrainosus, J30.89 - Other allergic rhinitis, J45.20 - Mild intermittent asthma, uncomplicated, Z00.01 - Encounter for general adult medical examination with abnormal findings, Z13.1 - Encounter for screening for diabetes mellitus, Z13.220 - Encounter for screening for lipoid disorders, Z30.41 - Encounter for surveillance of contraceptive pills Medications: Refilled albuterol sulfate 90 mcg/actuation (Ventolin HFA) 2 puffs inhalation Q6H PRN 8.5 grams 3RF shortness of breath or wheezing J45.20 - Mild intermittent asthma, uncomplicated
[2024-12-03 08:06] VITALS: BP 122/80; PULSE 83; RESP 16; TEMP 36.8; O2SAT 99; BMI 31.8
== END 2024-12-03 08:45 | disposition home or self-care (01) ==
LOC: HO.HMCC 07:58
PROVIDERS: PCP Internal Medicine; Visit Provider Internal Medicine
DX: Z00.01 Encounter for general adult medical examination with abnormal findings (principal); Z30.41 Encounter for surveillance of contraceptive pills; G43.109 Migraine with aura, not intractable, without status migrainosus; J45.20 Mild intermittent asthma, uncomplicated; Z23 Encounter for immunization

== ENCOUNTER → 2024-12-03 07:57 | Outpatient (BNVA) | payer OTHER, MEDICAID, SELFPAY | PROVIDERS: PCP Internal Medicine; Visit Provider Internal Medicine | DX: Z00.01 Encounter for general adult medical examination with abnormal findings (principal); J45.20 Mild intermittent asthma, uncomplicated; I27.20 Pulmonary hypertension, unspecified; G43.109 Migraine with aura, not intractable, without status migrainosus; Z23 Encounter for immunization | CPT/HCPCS: 90471; 90656; 96127 ==

== ENCOUNTER 2024-12-06 07:47 | Outpatient (REF) | payer OTHER, MEDICAID, SELFPAY ==
--- OUTSIDE RECORDS SUMMARY | 2024-03-28 10:00 | XMS_ITS ---
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 Name Role Phone Lindsay SNOW, Joanna Anthony Primary Care Provider Un available Rich Clifford Unavailable [phone] Kandace Anderson Unavailable [phone] REASON FOR VISIT r/s for sooner apt Medications Medication SIG (Take, Route, Frequency, Duration) Notes Start Date End Date Status Ubrelvy Active Albuterol Active Tri-Sprintec Active Social History Tobacco Use: Social History Observation Description Date Details (start date - stop date) Never Smoker NA - NA Tobacco Use/Smoking Question Answer Notes Are you a: nonsmoker Additional Findings: Tobacco Non-User Current no n-smoker Alcohol Screen Question Answer Notes Did you have a drink containing alcohol in the p ast year? No Points 0 Interpretation Negative Tobacco use other than smoking: Question Answer Notes Are you an other tobacco user? No Vital Signs Height 5 ft 2 in in 03/28/2024 Weight 170 lbs 03/28/2024 BMI 31.09 kg/m2 03/28/2024 Encounters Encounter Location Date Provider Diagnosis [facility] [address] [place] [address] 03/28/2024 Kandace Anderson Plan Of Treatment No Information Progress Notes * Destin MARTINSOB: 6 (38 yo F)Acc No.[id number]:03/28/2024 Progress Notes Patient: Manuel CHERIKANE Yamini Provider: Cheryl Anderson DPM :1985 A ge:38 Y S ex:Female Date:03/28/2024 Address:[address] [place] [address] [id number] Pcp:Manuel Pelayo Subjective: * Chief Complaints: * 1 . R/s for sooner apt. * ROS: H EENTM: Glasses/contacts a dmits. R espiratory: Shortness of breath a dmits. W heezing a dmits.? C ardiovascular: Murmur/Palpitations a dmits. * Medical History: A sthma, Headaches/Migraines, Chicken pox. * Family History: M other: alive, diagnosed with Family history of arthritis, Unspecified essential hypertension. F ather: alive. P aternal Grand Father: diagnosed with Diabetic - NIDDM. M aternal Grand Mother: diagnosed with Diabetic - NIDDM. P aternal uncle: diagnosed with Other malignant neoplasm of unspecified site. * Social History: T obacco Use: T obacco Use/Smoking A re you a: n onsmoker A dditional Findings: Tobacco Non-User C urrent non-smoker Tobacco use other than smoking A re you an other tobacco user? N o D rugs/Alcohol: D rugs H ave you used drugs other than those for medical reasons in the past 12 months? N o Alcohol Screen D id you have a drink containing alcohol in the past year? N o P oints 0 I nterpretation N egative M iscellaneous: C affeine: yes. Children: yes, 3. Exercise: no. Marital status: . 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 * Medications: T aking Tri-Sprintec , Taking Albuterol , Taking Ubrelvy Objective: * Vitals: H t: 5 ft 2 in, Wt:170, BMI:31.09, Shoe size: 8, Ht-cm: 157.48 cm, Wt-k.11 kg. Assessment: Plan: * Treatment: * Images: * The named appointment provid er may or may not be the originator of this progress note, and it is not deemed complete until electronically signed by the appointment provider. Sign off status: Pending * Provider: Cheryl Anderson DPM Date: 0 03/28/2024 Generated for Christy cintron/Brooke/Alanitting on: 0 12/06/2024 07:50 AM EDT
--- OUTSIDE RECORDS SUMMARY | 2024-12-06 07:51 | XMS_ITS | Patient Health Record ---
Author Organization [facility] Penelope cristobal [place] Address [address] [facility] [place] [address] Care Team Providers Care Electrotyper Apprentice Name Role Phone Lindsay SNOW, Joanna Anthony Primary Care Provider Un available CliffordRich Unavailable [phone] Kandace Anderson Unavailable [phone] Reason For Referral No Information Medications Medication [...] 04/10/2024 Encounters Encounter Location Date Provider Diagnosis [address] [address] 01/10/2024 Rich Clifford Onychomycosis B35.1 ; Pain in right toe(s) M79.674 and Pain in left toe(s) M79.[address] [address] 04/10/2024 Rich Clifford Onychomycosis B35.1 ; Pain in right toe(s) M79.674 and Pain in left toe(s) M79.675 [facility] [place] [address] [place] [address] 12/15/2023 Kandace Anderson Assessments Encounter Date Diagnosis [...] Insured Coverage Start Date Coverage End Date [facility] [address] [place] [address] [id number] Yamini Martins Self - patient is the insured Medical (General) History Medical History History ICD Code asthma Headaches/Migraines Chicken pox
--- OUTSIDE RECORDS SUMMARY | 2024-12-06 07:51 | XMS_ITS | Clinical Summary ---
Author Organization [facility] Address [address] [place] [address] Phone Care Team Providers Care Planer Tailer Name Role Phone Unavailable Primary Care Provider [...]
[2024-12-06 08:46] LABS: Alanine Aminotransferase 16 U/L (0-31); Anion Gap 11 (12-20); Aspartate Amino Transferase 26 U/L (5-31); Blood Urea Nitrogen 12 mg/dL (9-16); Calcium 9.2 mg/dL (8.4-10.2); Carbon Dioxide 25 mmol/L (22-29); Chloride 107 mmol/L (96-108); Cholesterol 191 mg/dL (<200); Estimated Glomerular Filt Rate > 60; HDL Cholesterol 56 mg/dL (>40); Potassium 4.0 mmol/L (3.3-5.1); Sodium 139 mmol/L (135-145); Triglycerides 93 mg/dL (<150)
== END 2024-12-06 07:48 | disposition home or self-care (01) ==
LOC: HO.LAB 07:47
PROVIDERS: PCP Internal Medicine; Visit Provider Internal Medicine
DX: Z00.01 Encounter for general adult medical examination with abnormal findings (principal); Z13.6 Encounter for screening for cardiovascular disorders; Z13.220 Encounter for screening for lipoid disorders; Z13.1 Encounter for screening for diabetes mellitus; G43.909 Migraine, unspecified, not intractable, without status migrainosus; J30.89 Other allergic rhinitis; J45.20 Mild intermittent asthma, uncomplicated; E55.9 Vitamin D deficiency, unspecified
CPT/HCPCS: 36415; 80048; 80061; 82306; 84450; 84460